=== PATIENT | female | born 1960 | race Caucasian/White ===

== ENCOUNTER 2024-05-27 19:18 | Inpatient (IN) | payer MEDICARE, OTHER, SELFPAY ==
[2024-05-27] VITALS (15 sets, daily range): BP systolic 92–195; BP diastolic 57–137; BMI 33.4; BMI 30.9
[2024-05-27 16:36] LABS: % Basophils 0.8 % (0-2); % Eosinophils 2.2 % (0-6); % Immature Granulocytes 0.4 % (0-0.5); % Lymphocytes 20.9 % (20.5-51.1); % Monocytes 6.1 % (1.7-9.3); % Neutrophils 69.6 % (42.2-75.2); Absolute Basophils 0.1 10^3/uL (0-0.2); Absolute Eosinophils 0.3 10^3/uL (0-0.7); Absolute Immature Granulocytes 0.1 10^3/uL (0-0.05); Absolute Lymphocytes 2.9 10^3/uL (1.2-3.4); Absolute Monocytes 0.9 10^3/uL (0.1-0.6); Absolute Neutrophils 9.7 10^3/uL (1.4-6.5); Hematocrit 36.7 % (37.0-47.0); Hemoglobin 12.1 g/dL (12.0-16.0); Mean Corpuscular Hgb 25.5 pg (27.0-31.0); Mean Corpuscular Volume 77.4 fL (81.0-99.0); Mean Platelet Volume 9.3 fL (7.4-10.4); Nucleated Red Blood Cells % 0 %; Platelet Count 427 10^3/uL (130-400); Red Blood Cell Count 4.74 10^6/uL (4.20-5.40); Red Cell Dist. Width 15.2 % (11.5-14.5); White Blood Cell Count 13.9 10^3/uL (4.8-10.8)
--- NOTE | 2024-05-27 16:40 | ED.GENMED ---
History of Present Illness
General
Chief Complaint: Breathing Problem
Source: patient and spouse
Exam Limitations: none
Time Seen by Provider: 05/27/24 15:44
Nursing documentation reviewed up to this point in time: agreed with
History of Present Illness
History of Present Illness:
64-year-old female no cardiac history ex-smoker presents with shortness of breath and cough dyspnea on exertion and also dyspnea at rest onset a few weeks ago seen in urgent care was tachycardic hypertensive with a small effusion referred to the ER
denies any fever has had lower extremity edema and presumed weight gain, does have a family history of cardiac disease, patient had an enlarged heart and a mitral valve issue diagnosed in [facility] greater than 17 years ago has had no local
follow-up, patient is also had some mild headache
Past History
Past History
ED Past Medical History: HTN, Hypothyroidism and Psychiatric (Depression, ADHD, anxiety)
ED Past Surgical History: Gynecological
Social History
Tobacco: Former smoker
Alcohol: None
Drug: None
Personal:
Living: with family
Employment: Not employed
Family History
Family History: CAD
Review of Systems
Review of Systems
All Other Systems: Not applicable
Constitutional: Reports weight gain; Denies fever or fatigue
EENT: Reports no symptoms
Respiratory: Reports trouble breathing
Cardiac: Denies chest pain, diaphoresis or syncope
ABD/GI: Reports no symptoms
: Reports no symptoms
Musculoskeletal: Reports edema
Neurological: Reports no symptoms
Endocrine: Reports no symptoms
Hematologic/Lymphatic: Reports no symptoms
Psychiatric: Reports no symptoms
Phy Exam
Physical Exam
Physical Exam:
Physical Exam
General: 64 female mild respiratory distress tachycardic tachypneic hypertensive
Neck: No jaundice
Heart: Tachycardic with murmur
Lungs: Crackles at the bases
Abdomen: Nontender
Neuro: alert and oriented. no focal neurological deficits
Skin: no rash
Psychiatric: well kept. interactive and cooperative
Extremities: Edema without calf pain
Scores
Heart Failure Risk
Heart Failure Risk Score: Yes
History of Stroke or TIA: No
History of intubation for respiratory distress: No
Heart rate on ED arrival >/= 110: Yes
SaO2 <90% on arrival on room air: No
HR >/=110 during 3min walk test (or too ill to perform test): Yes
ECG has acute ischemic changes: No
Urea >/=12mmol/L (BUN 33.6mg/dL): No
Serum CO2>/=35mmol/L: No
Troponin I or T elevated to IL Level (0.4mg/dL): No
NT-proBNP >/=5,000ng/L (5,000pg/ml): Yes
HF Risk Score: 3
Admission Status: HIGH RISK 15.9% Consider SNF treatment or admission to hospital
Course
Orders/Labs/Results
Orders:
Orders
05/27/24 15:24
Electrocardiogram (*1) Urgent
Reason for Study: Chest Pain
EKG- Treatment ONCE
05/27/24 15:45
Cardiac Monitoring- Treatment ONCE
05/27/24 16:26
Complete Blood Count/With Diff Urgent
NT-proBNP Urgent
Troponin I Urgent
05/27/24 16:30
HydrALAZINE [Apresoline] 10 mg IV NOW STA
05/27/24 17:25
Acetaminophen [Tylenol] 1,000 mg PO NOW STA
05/27/24 17:26
Acetaminophen [Tylenol] 1,000 mg .ROUTE .STK-MED ONE
05/27/24 17:31
Basic Metabolic Panel Urgent
05/27/24 17:59
Magnesium Urgent
Potassium Urgent
05/27/24 18:02
Furosemide [Lasix] 60 mg IV NOW STA
Abnormal Lab Results
05/27/24 05/27/24
16:26 17:31
WBC 13.9 H 10^3/uL
(4.8-10.8)
Hct 36.7 L %
(37.0-47.0)
MCV 77.4 L fL
(81.0-99.0)
MCH 25.5 L pg
(27.0-31.0)
RDW 15.2 H %
(11.5-14.5)
Plt Count 427 H 10^3/uL
(130-400)
Abs Immat Gran (auto) 0.1 H 10^3/uL
(0-0.05)
Absolute Neuts (auto) 9.7 H 10^3/uL
(1.4-6.5)
Absolute Monos (auto) 0.9 H 10^3/uL
(0.1-0.6)
Carbon Dioxide 18 L mmol/L
(22-30)
BUN 24 H mg/dl
(7-17)
Glucose 137 H mg/dl
(70-99)
05/27/24 16:26
Vital Signs
Initial and Last Documented VS:
Initial Vital Signs
Temp Pulse Resp BP Pulse Ox
98.5 F 115 22 190/131 95
05/27/24 15:20 05/27/24 15:20 05/27/24 15:20 05/27/24 15:20 05/27/24 15:20
Last Documented Vital Signs
Temp Pulse Resp BP Pulse Ox
98.5 F 113 19 178/104 99
05/27/24 15:20 05/27/24 17:30 05/27/24 17:30 05/27/24 17:15 05/27/24 17:00
MDM/Problems Addressed
Differential Diagnosis Includes:
Hypertensive urgency, pulmonary edema, congestive heart failure, valvular disease accelerated hypertension, pneumonia pulm embolism, pneumothorax
MDM/Problems Addressed:
Shortness of breath
Chronic conditions affecting care: HTN
Acute Exacerbation and/or Progression of Chronic Illness: HTN
*Radiology
Radiology exam reviewed: radiology read reviewed
*Pulse Oximetry
Patient hypoxic: no
*EKG
Interpreted by ED Provider?: Yes
Interpretation: abnormal
Comparison EKG: no comparison EKG present
Heart Rate: 118
Rate: tachycardiac
Rhythm: sinus
Ischemia: non-specific ST changes
*Admissions Evaluator Interpretation
Rate: tachycardiac
Interpretation: abnormal
Heart Rate: 118
Rhythm: sinus
*Critical Care Note
Total Time (30-74mins, 75-104mins- exclusive of procedures): 30
Update Note
Update Note:
Update, labs noted will start diuretic and alpha blockers, patient require admission
ED Attending Note
-
Portions of this chart may have been created with voice recognition software.� Occasional wrong word or��sound alike� substitutions may have occurred due to the inherent limitations of voice recognition software.
Discharge Plan
Departure
Patient Disposition: Admit
Date of Disposition: 05/27/24
Time of Disposition: 18:03
Admit to: Telemetry
Presentation/result/management discussed w/ accepting MD/DO: Hospitalist
Patient with high blood pressure during this ER visit?: Yes
Condition: Fair
Discharge Problem:
Malignant hypertensive urgency
Prescriptions:
No Action
quetiapine 200 mg tablet
200 mg PO HS
acetaminophen 500 mg Tablet
1,000 mg PO Q6H PRN (Reason: mild pain/fever/headache)
gabapentin 100 mg capsule
100 mg PO HS
hydroxyzine pamoate 25 mg capsule
50 mg PO HS
duloxetine 60 mg capsule,delayed release(DR/EC)
60 mg PO DAILY
Referrals:
NONE,* [Family Provider] -
Interventions
Interventions:
*Risk Screen - Suicide Last Done: 05/27/24 15:20
*General Assessment Last Done: 05/27/24 15:20
*Neglect/Abuse Screening Last Done: 05/27/24 15:20
*ED COVID-19 Vaccine History Last Done: 05/27/24 16:28
ED- Cardiac Assessment Last Done: 05/27/24 16:52
ED- Pulmonary Assessment Last Done: 05/27/24 16:52
Discharge Date and Time
Print Language: [place]
[2024-05-27] MEDS: APRESOLINE 10 MG IV (16:47)
[2024-05-27 17:01] LABS: NT-proBNP 5730 pg/ml; Troponin I 0.017 ng/ml
[2024-05-27] MEDS: TYLENOL 1000 MG PO (17:28)
[2024-05-27 18:00] LABS: Blood Urea Nitrogen 24 mg/dl (7-17); Calcium 9.1 mg/dl (8.4-10.2); Carbon Dioxide 18 mmol/L (22-30); Chloride 107 mmol/L (98-107); Estimated Creatinine Clearance 77 ml/min; Glucose 137 mg/dl (70-99); Sodium 138 mmol/L (135-145); eGFR > 60.00
--- NOTE | 2024-05-27 18:15 | HPS.HSE ---
Family Physician
-
Family Physician: * NONE
Chief Complaint
-
Shortness of breath for a few weeks in duration
History of Present Illness
64 years old female who presented with shortness of breath for a few weeks duration. It started as upper respiratory illness that she and her had. She continued to have dry cough with exertional shortness of breath. No chest pain. No
palpitations. She started to develop bilateral leg swelling. She did not check her weight but felt bloated.
Patient does not have primary care doctor. She does not take medications other than for anxiety and depression.
In the emergency room, she was noted to have tachycardia with high blood pressure. Chest radiography showed small right pleural effusion.
Medical History
Past Medical History
Past Medical History: Reports Other (Depression and anxiety)
Past Surgical History: Reports Other (No recent major surgery)
Social History
Tobacco: Non-smoker
Alcohol: None
Drug: None
Personal:
Living: With Family
Employment: Retired ([employer])
Family History
Family History: Hypertension
Allergies / Home Medications
Allergies reflects when Allergies were last updated in [employer].
Home Medications with original date entered in [employer]
Allergy/Medication List:
Allergies
Allergy/AdvReac Type Severity Reaction Status Date / Time
Estrogens Allergy Hives Verified 05/27/24 15:20
methyltestosterone Allergy Hives Verified 05/27/24 15:20
metoprolol Allergy Unknown Verified 05/27/24 15:20
propoxyphene Allergy Unknown Verified 05/27/24 15:20
sertraline Allergy Unknown Verified 05/27/24 15:20
sumatriptan Allergy Unknown Verified 05/27/24 15:20
Home Medications
acetaminophen 500 mg tablet 1,000 mg PO Q6H PRN mild pain/fever/headache 05/27/24
duloxetine 60 mg capsule,delayed release 60 mg PO DAILY 05/27/24
gabapentin 100 mg capsule 100 mg PO HS 05/27/24
hydroxyzine pamoate 25 mg capsule 50 mg PO HS 05/27/24
quetiapine 200 mg tablet 200 mg PO HS 05/27/24
Review of Systems
-
History Source: Patient
A 12 point ROS was completed and negative except as noted: Yes
Constitutional: Denies Fever or Chills
EENT: Denies Sore Throat
Respiratory: Reports Trouble Breathing
Cardiac: Denies Chest Pain
Abdomen/GI: Denies Abdominal Pain
: Reports Frequency
Musculoskeletal: Reports Edema (Lower extremity)
Skin: Denies Rash
Neurological: Reports Headache
Endocrine: Denies Temp Intolerance
Hematologic/Lymphatic: Denies Bruising
Psych: Denies Panic Disorder
Physical Exam
Vital Signs
Vital Signs
Temp Pulse Resp BP Pulse Ox
98.5 F 113 19 178/104 99
05/27/24 15:20 05/27/24 17:30 05/27/24 17:30 05/27/24 17:15 05/27/24 17:00
Physical Exam
General: No Apparent Distress and Comfortable
HEENT: Moist mucous membranes and Atraumatic
Respiratory: No Wheezes or Rales
Cardiac: S1/S2 and Tachycardia
GI: Soft and Non Tender
Genito-urinary: No costovertebral tender
Musculoskeletal: No Clubbing, No Cyanosis, Edema, Left Lower Extremity and Edema, Right Lower Extremity
Skin: No Jaundice
Neuro: AO x 3 and Nonfocal/grossly intact; No Slurred Speech or Facial Droop
Psych: Calm and Intact Judgment/Insight
Laboratory Results
-
05/27/24 16:26
Laboratory Results
Total Bilirubin Cancelled 05/27/24 17:31
AST Cancelled 05/27/24 17:31
ALT Cancelled 05/27/24 17:31
Alkaline Phosphatase Cancelled 05/27/24 17:31
Troponin I 0.017 ng/ml 05/27/24 16:26
Impression/Plan
-
64 years old female presented with trouble breathing for a few weeks and peripheral edema
#Hypertensive urgency with possible underlying heart disease/new diagnosis of heart failure
No history of primary hypertension. No follow-up with primary care doctor for years.
She denied hypoxia or chest pain. Negative troponin. Elevated proBNP. EKG no acute ischemic changes but conduction defect.
No elevated JVD.
Reported weight gain/peripheral edema last few weeks.
Chest radiography small right pleural effusion
Admit the patient to the hospital/telemetry floor
She is getting hydralazine, Lasix in the emergency room,
Will hold off on blood pressure medications intravenously for now until we see the response of blood pressure after administering the IV medications in the ER
For now we will start the patient on low-dose carvedilol
Continue with as needed IV hydralazine
Continue with IV Lasix twice daily
Monitor renal function and electrolytes cardiac monitoring
Order echocardiogram
Appreciate cardiology input
#Blood work including potassium and renal function
# Leukocytosis. No fever. No significant cough. Chest radiography no infiltration.
Likely reactive. Will monitor
# Sinus tachycardia
Will start the patient on low-dose carvedilol. Monitor on telemetry. Follow-up with echo.
# History of anxiety and depression. Mood is cooperative. Continue with home medications.
# DVT prophylaxis
Total time spent to see the patient on the floor, examine the patient, review data and lab results, discuss treatment plan with patient and her , ER doctor, nursing staff around 75 minutes
[2024-05-27] MEDS: LASIX 60 MG IV (18:46)
[2024-05-27] MEDS: VASOTEC 5 MG PO (18:46)
[2024-05-27] MEDS: COREG 6.25 MG PO (21:00)
[2024-05-27 21:01] LABS: Potassium 3.3 mmol/L (3.5-5.1)
[2024-05-27] MEDS: NEURONTIN 100 MG PO (21:08)
[2024-05-27] MEDS: SEROQUEL 200 MG PO (21:08)
[2024-05-27] MEDS: HEPARIN 5000 UNITS SC (21:10)
[2024-05-27] MEDS: KCL 40 MEQ PO (22:24)
--- NOTE | 2024-05-27 22:39 | PTCARENOTE ---
Rec'd pt from ED, oriented to room and unit. Pt's bue and ble 'cramping' TT to Nash FENG order for potassium provided, given to pt. Pt blood pressure down from 174/102 to 92/63, pt somewhat dizzy and lightheaded. No new orders. Pt instructed to
stay flat if can tolerate and not get up without ringing. Pt call robles placed within reach, pt instructed to ring for assistance, verbalized understanding. will cont to monitor. Pt asked for home vistaril to be orderd, Nash FENG no new orders as
pt has a prolonged QT
[2024-05-28] VITALS (9 sets, daily range): BP systolic 80–165; BP diastolic 41–96; PULSE 84–88; BMI 30.7
[2024-05-28] MEDS: TYLENOL 1000 MG PO ×3 (07:31→21:36)
[2024-05-28 08:01] LABS: Blood Urea Nitrogen 23 mg/dl (7-17); Calcium 8.9 mg/dl (8.4-10.2); Carbon Dioxide 23 mmol/L (22-30); Chloride 103 mmol/L (98-107); Estimated Creatinine Clearance 59 ml/min; Glucose 115 mg/dl (70-99); HDL Cholesterol 40 mg/dl; LDL Cholesterol, Calculated 55 mg/dl; Potassium 3.8 mmol/L (3.5-5.1); Sodium 137 mmol/L (135-145); Total Cholesterol 117 mg/dl (50-199); Triglyceride 114 mg/dl (10-149); Very Low Density Lipoprotein 22 mg/dl (0-30); eGFR > 60.00
[2024-05-28] MEDS: KCL 20 MEQ PO ×2 (08:34→21:19)
[2024-05-28] MEDS: COREG 6.25 MG PO ×2 (08:34→21:21)
[2024-05-28] MEDS: CYMBALTA DELAYED RELEASE 60 MG PO (08:34)
[2024-05-28] MEDS: HEPARIN 5000 UNITS SC ×2 (08:35→21:19)
[2024-05-28] MEDS: LASIX 40 MG IV (08:35)
--- NOTE | 2024-05-28 09:14 | CON.CAR ---
Addendum entered and electronically signed by Armando Elias MD 05/28/24 16:54:
I saw and examined the patient.
The CORRECTIONAL SUPERVISING COOK's note was reviewed and I agree with the note.
Comment: 64 y/o female with hypertension (no longer on meds), hypothyroidism (no longer on meds), depression, and anxiety who is here for evaluation of SOB x 5 weeks with associated cough, LE edema, and abdominal bloating. She has depressed EF and
will plan for cath tomorrow.
Original Note:
Consultation
Consultation Request
Date/Time Consultation Requested: 05/27/242023
Date/Time Consultation Performed: 05/28/24929
Requesting Provider: Dr. Guzman
Performing Provider: Lesley FENG for Dr. Waters
Reason for Consultation: CHF
Medical History
-
Chief Complaint: SOB
History of Present Illness:
64 y/o female with hypertension (no longer on meds), hypothyroidism (no longer on meds), depression, and anxiety who is here for evaluation of SOB x 5 weeks with associated cough, LE edema, and abdominal bloating. She does not know her normal
weight, but does believe her weight is up. She does think this all started with a URI about 5 weeks ago that she and her both had. She had a fire watchman back in [place] about 18 years ago for 'enlarged heart' and 'tachycardia'; details unknown.
BP was severely elevated on arrival, but is now improved and on medical therapy. Additionally, she has been given IV diuresis and feels much improved. She is in no distress at the time of my assessment.
Past Medical History
Past Medical History: HTN, Hypothyroidism and Psychiatric (depression, anxiety)
Social History
Tobacco: Former Smoker
Alcohol: None
Personal:
Living: With Family
Family History
Family History: Other (dad : afib)
Allergies / Home Medications
Allergy/AdvReac Type Severity Reaction Status Date / Time
Estrogens Allergy Hives Verified 05/27/24 15:20
methyltestosterone Allergy Hives Verified 05/27/24 15:20
metoprolol Allergy Unknown Verified 05/27/24 15:20
propoxyphene Allergy Unknown Verified 05/27/24 15:20
sertraline Allergy Unknown Verified 05/27/24 15:20
sumatriptan Allergy Unknown Verified 05/27/24 15:20
�Medication �Instructions �Recorded �Confirmed �Type
acetaminophen 500 mg tablet 1,000 mg PO Q6H PRN mild 05/27/24 05/27/24 History
pain/fever/headache
duloxetine 60 mg capsule,delayed 60 mg PO DAILY Neurological 05/27/24 05/27/24 History
release Condition
gabapentin 100 mg capsule 100 mg PO HS Neurological Condition 05/27/24 05/27/24 History
hydroxyzine pamoate 25 mg capsule 50 mg PO HS Sleep 05/27/24 05/27/24 History
quetiapine 200 mg tablet 200 mg PO HS Mental Health/Anxiety 05/27/24 05/27/24 History
Review of Systems
-
History Source: Patient
All other systems: Negative unless noted
Constitutional: Weight Gain
Respiratory: Cough and Trouble Breathing
Musculoskeletal: Edema
Physical Exam
Vital Signs
Temp Pulse Resp BP Pulse Ox
98.1 F 98 16 129/81 94
05/28/24 07:00 05/28/24 08:34 05/28/24 07:00 05/28/24 08:34 05/28/24 07:00
Lab Results
05/27/24 16:26
05/28/24 06:53
Troponin I 0.017 ng/ml 05/27/24 16:26
Eej-T-Djojnzllflw Pept 5730 pg/ml 05/27/24 16:26
Physical Exam
General: Well Developed, Well Nourished and No Apparent Distress
HEENT: Normocephalic and Anicteric
Respiratory: Other (diminished L base)
Cardiac: Regular Rhythm
Musculoskeletal: Edema (mild BLE edema)
Skin: Warm and Dry
Neuro: AO x 3
Psych: Calm
Impression / Plan
-
HTN: severe on arrival
-improved s/p enalapril, lasix, hydralazine, coreg
-tolerating coreg, which was started by internal medicine team
-monitor with diuresis and Coreg
Acute HF, type unknown:
-echo from this AM pending
-continue IV diuresis, which requires intensive monitoring
-will change to BID
-hypokalemia resolved and potassium supplementation has been ordered
-CHF education
-sodium/fluid restriction
Depression, anxiety:
-on medical therapy
Hypothyroidism:
-not on meds
-check levels
Other info:
Patient will need to establish care with PCP at d/c, she has not seen one in years
Data Reviewed
-
EKG: Tracing Personally Visualized and interpreted (ST with ICRBBB)
Radiology: Report Reviewed by me (CXR: Small right pleural effusion.)
Medical Tests (Nuc Med, Echo etc): Other (echo ordered and pending)
Labs: Labs Reviewed by me
--- NOTE | 2024-05-28 09:45 | W.PN.HOSP.TC ---
Addendum entered and electronically signed by Jerel Guzman MD 05/28/24 15:31:
Addendum
Echo showed depressed LVEF, will need to rule out obstructive CAD
Plan for Cath tomorrow
_SBP low at 91, hold PM dose of Lasix, hope she can tolerate Coreg.
End
Original Note:
Today's Communication/Plan
-
likely dc in am pending echo result and cardiology input
Assessment / Plan
Assessment / Plan
Physical Exam
General: No Apparent Distress and Comfortable
HEENT: Moist mucous membranes and Atraumatic
Respiratory: No Wheezes or Rales
Cardiac: S1/S2 and no murmur.
GI: Soft and Non Tender
Genito-urinary: No costovertebral tender
Musculoskeletal: No Clubbing, No Cyanosis, Edema, less Left Lower Extremity and Edema, less Right Lower Extremity
Skin: No Jaundice
Neuro: AO x 3 and Nonfocal/grossly intact; No Slurred Speech or Facial Droop
Psych: Calm and Intact Judgment/Insight.
64 years old female presented with trouble breathing for a few weeks and peripheral edema
#Hypertensive urgency with possible underlying heart disease/new diagnosis of heart failure
BP is better controlled. Good response over night
She had good urine out put over night. Weight is 83 KG. I think weight of 91 Kg in ER not very accurate
C/W Lasix but reduce to once daily.
F/W echo result
No hypoxia
No chest pain
LDL 55
Appreciate cardiology input
#Hypokalemia, replace
# Leukocytosis. No fever. No significant cough. Chest radiography no infiltration.
Likely reactive.
# Sinus tachycardia. Less today
c/w BB.
# History of anxiety and depression. She follows with psychiatrist. Mood is cooperative. Continue with home medications.
# DVT prophylaxis, SQ Heparin
Total time spent to see the patient on the floor, examine the patient, review data and lab results, discuss treatment plan with patient, nursing staff around 55 minutes
Anticipated Discharge: Within 24 hours
Subjective/Interval History
-
Date of Service: May 28, 2024
She is feeling better
Objective Data
-
Labs:
Laboratory Results
05/28/24
06:53
Sodium 137
Potassium 3.8
Chloride 103
Carbon Dioxide 23
BUN 23 H
Creatinine 1.0
Glucose 115 H
Calcium 8.9
Vital Signs:
Vital Signs
Temp Pulse Resp BP Pulse Ox
98.1 F 98 16 129/81 94
05/28/24 07:00 05/28/24 08:34 05/28/24 07:00 05/28/24 08:34 05/28/24 07:00
I&O
05/27/24 05/28/24 05/29/24
06:59 06:59 06:59
Output Total 1750 / 1750
Balance -1750 / -1750
--- NOTE | 2024-05-28 10:23 | W.DCSUMMARY ---
Discharge Summary
Discharge Data
Date of Admission: 05/27/24
Date of Discharge: 05/30/24
-
Pending Results: No
Hospital Course
64 years old female admitted with shortness of breath. Patient was found to have elevated blood pressure and was diagnosed with hypertensive emergency. She had evidence of heart failure with pulmonary congestion and respiratory distress. Patient
did not have primary care doctor and was not checking her blood work or blood pressure at home. Patient was diagnosed with primary untreated hypertension. She was admitted to the hospital and started on new medications including carvedilol. She
was given furosemide treatment. Patient was evaluated by product safety and standards engineer. She had echocardiogram that showed left ventricular ejection fraction around 40%. She underwent cardiac catheterization and she had very mild nonobstructive coronary artery
disease. She had elevated filling pressure. She was started on goal-directed medical therapy with lisinopril, Farxiga, carvedilol. Blood work including renal function was monitored in the hospital. Patient seems to tolerate medications well with
no hypotension or dizziness. She did not have chest pain. Patient was found to have elevated hemoglobin A1c at 7.7. Possible diabetic status. Patient was counseled regarding potential side effects of her new medications including lisinopril and
Farxiga. She verbalized understanding. She was given prescription to do blood work and appointment to follow-up with product safety and standards engineer. Patient was advised to establish primary care services. Discharge instructions were discussed with the patient and
her and all questions were answered to their satisfaction. Patient remained hemodynamically stable and was discharged home in a stable condition.
Discharge Plan
-
Patient Disposition: Home (Routine Discharge)
Discharge Diagnosis/Procedures: Hypertensive urgency with hypertensive heart disease/new diagnosis of acute systolic heart failure
Status post echocardiogram and cardiac catheterization
Possible pre-diabetes status
You were followed by product safety and standards engineer.
You were started on new medications as follows with common side effects.
- Lasix, diuretic, potential Side effects : hypotension, hypokalemia, hyponatremia, kidney injury.
- Dapagliflozin (Farxiga) : Urine/ genital infection, nausea, low blood glucose
- Lisinopril IMELDA: hypotension, hyperkalemia, kidney injury, angioedema, cough
- Atorvastatin, statin for cholesterol,: muscle pain/aches, myopathy, elevated liver enzymes, fatigue
- Carvedilol ( Coreg) Beta solo' hypotension, bradycardia, fatigue.
You will need to do blood work to monitor for side effects. You will need to establish primary care services.
Check your blood pressure twice a day and keep record of the readings to share with your doctors. Optimal blood pressure less than 140/90
Diet: Low Fat and Low Sodium
Blood Work: CMP&CBC&LFT&CPK in 1 week
Instructions: *PCP/Other Trumpet Teacher Heart Failure Instructions
Stand Alone Forms: DC Instructions- Cath/EP Lab
Referrals:
Armando Elias MD [Active] - 06/12/24 3:40 pm (Cardiology followup appointment)
Nataly Stephenson CRNP [Non-Admitting Privileges] - in one to two weeks
Prescriptions:
New
carvedilol 6.25 mg Tablet
6.25 mg PO BID Qty: 60 0RF
dapagliflozin propanediol 10 mg Tablet
10 mg PO DAILY Qty: 30 0RF
furosemide 40 mg Tablet
40 mg PO DAILY Qty: 30 0RF
atorvastatin 20 mg Tablet
20 mg PO QPM Qty: 30 0RF
aspirin 81 mg Tablet,Chewable
81 mg PO DAILY Qty: 30 0RF
lisinopril 10 mg tablet
10 mg PO DAILY Qty: 30 0RF
Continued
quetiapine 200 mg tablet
200 mg PO HS
acetaminophen 500 mg Tablet
1,000 mg PO Q6H PRN (Reason: mild pain/fever/headache)
gabapentin 100 mg capsule
100 mg PO HS
hydroxyzine pamoate 25 mg capsule
50 mg PO HS
duloxetine 60 mg capsule,delayed release(DR/EC)
60 mg PO DAILY
Discharge Orders:
Discharge Patient (As Directed); Ordered 05/30/24
Ordered By: Jerel Guzman
Discharge Date and Time
Discharge Date/Time: 05/30/24 12:07
Print Language: CHINESE
[2024-05-28 11:53] LABS: TSH Reflex To Free T4 5.37 uIU/ml (0.47-4.68)
[2024-05-28] MEDS: ASPIRIN 325 MG PO (12:22)
[2024-05-28 12:23] LABS: Free T4 1.26 ng/dl (0.78-2.19)
--- NOTE | 2024-05-28 13:54 | CM ---
Patient seen at bedside with patient . Patient lives in a 2 story home with no DME. Patient does not have a PCP and uses the [facility] in [facility]. Patient is independent of ADL's and IADL's. Patient has an advance directivve per her
. CM called to [employer] [facility] and they will not provide cost without a script; per Moe Delo cost for entresto is 462.28 bid and Fariga 10 mg daily is 446.13, Jardiance is not covered. CM updated PA for cardiology and left VM for insurance,
will call again to attempt to get further cost information. Patient states that patient has not met her deductible yet and he understands that they are responsible for 50% of med cost. Patient is for surgical procedure next wed and
is expecting to be in the hospital for only one day. CM encouraged patient and to think of further options for supports. CM will continue to follow for discharge planning needs.
Plan; home with VN vs home with no needs.
[2024-05-28] MEDS: NEURONTIN 100 MG PO (21:37)
[2024-05-28] MEDS: SEROQUEL 200 MG PO (21:37)
[2024-05-29] VITALS (13 sets, daily range): BP systolic 98–141; BP diastolic 57–98; PULSE 87; BMI 30.5
[2024-05-29] MEDS: LASIX 40 MG IV (08:43)
[2024-05-29] MEDS: KCL 20 MEQ PO (08:44)
[2024-05-29] MEDS: FARXIGA 10 MG PO (08:44)
[2024-05-29] MEDS: LOW STRENGTH ASPIRIN 81 MG PO (08:44)
[2024-05-29] MEDS: CYMBALTA DELAYED RELEASE 60 MG PO (08:44)
[2024-05-29] MEDS: COREG 6.25 MG PO ×2 (08:44→20:49)
[2024-05-29] MEDS: HEPARIN 5000 UNITS SC ×2 (08:45→20:40)
[2024-05-29 09:05] LABS: Blood Urea Nitrogen 29 mg/dl (7-17); Calcium 8.9 mg/dl (8.4-10.2); Carbon Dioxide 25 mmol/L (22-30); Chloride 105 mmol/L (98-107); Estimated Creatinine Clearance 54 ml/min; Glucose 111 mg/dl (70-99); Potassium 4.5 mmol/L (3.5-5.1); Sodium 138 mmol/L (135-145); eGFR 55.42
--- NOTE | 2024-05-29 09:13 | CM ---
Addendum entered by Meena Dsouza 05/29/24 14:24:
Patient provided card for med D program [facility] /[facility] member # [id number] and phone number . Per insurance Cost for Entresto would be [phone]$,Cost for Faxiga 10 mg would be $623.94,Jardiance is not covered.
Addendum entered by Meena Dsouza 05/29/24 12:51:
Patient out of room to procedure per nursing. Patient stated he does not have patient cards and CM should get them from her. CM will return and attempt to clarify when patient returns from procedure.
Original Note:
CM called to insurance plan listed however, no accurate plan D information available. CM left message for patient regarding phone numbers. CM will continue to follow for discharge planning needs.
Plan; home with VN vs home with no needs.
--- NOTE | 2024-05-29 09:23 | W.PN.HOSP.TC ---
Today's Communication/Plan
-
Treatment of new onset heart failure with Lasix
Mild BRIGITTE, avoid hypotension
NPO, plan for Cath today
Assessment / Plan
Assessment / Plan
Physical Exam
General: No Apparent Distress and Comfortable
HEENT: Moist mucous membranes and Atraumatic
Respiratory: No Wheezes or Rales
Cardiac: S1/S2 and no murmur.
GI: Soft and Non Tender
Genito-urinary: No costovertebral tender
Musculoskeletal: No Clubbing, No Cyanosis, Edema, less Left Lower Extremity and Edema, less Right Lower Extremity
Skin: No Jaundice
Neuro: AO x 3 and Nonfocal/grossly intact; No Slurred Speech or Facial Droop
Psych: Calm and Intact Judgment/Insight.
64 years old female presented with trouble breathing for a few weeks and peripheral edema
#Hypertensive urgency with possible underlying heart disease/new diagnosis of heart failure
# Newly diagnosed acute systolic heart failure
No chest pain
Plan for cath, she is NPO
BP is better controlled. Good response over night
She had good urine out put over night. Weight is 83 KG. I think weight of 91 Kg in ER not very accurate
C/W Lasix as blood pressure tolerates
Echocardiogram showed LVEF 40%, LAD territory hypokinesis, stage II diastolic dysfunction, mild MR, moderate TR, estimated PAP 35 to 40 mmHg.
No hypoxia
No chest pain
LDL 55
Started on Farxiga
Appreciate cardiology input
#Hypokalemia, replaced
# Mild BRIGITTE
Avoid hypotension
# Leukocytosis. No fever. No significant cough. Chest radiography no infiltration.
Likely reactive.
# Sinus tachycardia. Less today
c/w BB.
# History of anxiety and depression. She follows with psychiatrist. Mood is cooperative. Continue with home medications.
# DVT prophylaxis, SQ Heparin
Total time spent to see the patient on the floor, examine the patient, review data and lab results, discuss treatment plan with patient, nursing staff around 55 minutes
Anticipated Discharge: 24 - 48 hours
Subjective/Interval History
-
Date of Service: May 29, 2024
No sob
No chest pain
Objective Data
-
Labs:
Laboratory Results
05/29/24
07:25
Sodium 138
Potassium 4.5
Chloride 105
Carbon Dioxide 25
BUN 29 H
Creatinine 1.1 H
Glucose 111 H
Calcium 8.9
Vital Signs:
Vital Signs
Temp Pulse Resp BP Pulse Ox
98.2 F 88 16 134/82 95
05/29/24 08:13 05/29/24 08:44 05/29/24 08:13 05/29/24 08:44 05/29/24 08:13
I&O
05/28/24 05/29/24 05/30/24
06:59 06:59 06:59
Intake Total 1200 / 1200
Output Total 1750 / 1750 1000 / 1000
Balance -1750 / -1750 200 / 200
[2024-05-29 10:54] LABS: Glycohemoglobin (HgbA1c) 7.7 % (4.0-5.6)
[2024-05-29] MEDS: NSS 250 ML IV (11:21)
--- NOTE | 2024-05-29 13:51 | ITS.CL.CATH ---
Scalder - Catheterization
Cardiac Catheterization
Procedure Report:
CARDIAC CATHETERIZATION REPORT
Date of Procedure: 05/29/2024
Referring: Armando Elias MD
Indication: New CHF with systolic dysfunction
HEMODYNAMIC DATA
AO: 156/99
LV: 156/21
LEFT VENTRICULOGRAPHY: Mild global hypokinesis with EF 41%
CORONARY ANGIOGRAPHY
Dominance: Right
Left Main: Normal
LAD: Mild luminal irregularities
Circumflex: Mild luminal irregularities
RCA: Dominant vessel with 10-20% mid RCA stenosis and otherwise mild luminal irregularities
Closure Device: None-the procedure was performed via the right radial artery. The Ariel's test was normal prior to the procedure.
Radiation (mGy): 136
DAP (cm2.Gy): 14.2
Fluoroscopy time: 1.9 minutes
CONCLUSIONS
1: Systemic hypertension
2: Mildly elevated LVEDP
3. Mild global hypokinesis with EF 41%
4. Very mild nonobstructive CAD as described
5. Suspect hypertensive cardiomyopathy as etiology for her left ventricular dysfunction and clinical heart failure. Continue carvedilol 6.25 twice daily and add lisinopril 5 mg twice daily which can be titrated up depending on blood pressure
response. Given mild nonobstructive CAD, she should remain on low-dose aspirin and statin to achieve LDL less than 70 and ideally 55. She will need education about home blood pressure monitoring and clinical follow-up with both medicine and
cardiology
Copy to: Armando Elias MD
Ellis Banegas MD, [facility], [facility]
[2024-05-29] MEDS: LIPITOR 20 MG PO (17:29)
[2024-05-29] MEDS: ZESTRIL 5 MG PO (20:50)
[2024-05-29] MEDS: TYLENOL 650 MG PO (20:57)
[2024-05-29] MEDS: SEROQUEL 200 MG PO (21:07)
[2024-05-29] MEDS: NEURONTIN 100 MG PO (21:07)
[2024-05-30 03:00] VITALS: BP 127/82
[2024-05-30 06:00] VITALS: BMI 30.2
[2024-05-30 07:00] VITALS: BP 120/86
[2024-05-30] MEDS: LASIX 40 MG PO (08:32)
[2024-05-30] MEDS: KCL 20 MEQ PO (08:32)
[2024-05-30] MEDS: LOW STRENGTH ASPIRIN 81 MG PO (08:33)
[2024-05-30] MEDS: HEPARIN 5000 UNITS SC (08:33)
[2024-05-30] MEDS: ZESTRIL 5 MG PO (08:33)
[2024-05-30] MEDS: COREG 6.25 MG PO (08:33)
[2024-05-30] MEDS: FARXIGA 10 MG PO (08:33)
[2024-05-30] MEDS: CYMBALTA DELAYED RELEASE 60 MG PO (08:33)
[2024-05-30 08:42] LABS: Hematocrit 35.7 % (37.0-47.0); Hemoglobin 11.5 g/dL (12.0-16.0); Mean Corp Hgb Conc. 32.2 g/dL (33.0-37.0); Mean Corpuscular Hgb 25.1 pg (27.0-31.0); Mean Corpuscular Volume 77.9 fL (81.0-99.0); Mean Platelet Volume 8.9 fL (7.4-10.4); Platelet Count 352 10^3/uL (130-400); Red Blood Cell Count 4.58 10^6/uL (4.20-5.40); Red Cell Dist. Width 14.7 % (11.5-14.5); White Blood Cell Count 9.4 10^3/uL (4.8-10.8)
[2024-05-30 09:00] LABS: Blood Urea Nitrogen 27 mg/dl (7-17); Carbon Dioxide 22 mmol/L (22-30); Chloride 103 mmol/L (98-107); Estimated Creatinine Clearance 65 ml/min; Glucose 110 mg/dl (70-99); Sodium 136 mmol/L (135-145); eGFR > 60.00
--- NOTE | 2024-05-30 09:25 | W.PN.HOSP.TC ---
Today's Communication/Plan
-
dc planning
Assessment / Plan
Assessment / Plan
Physical Exam
General: No Apparent Distress and Comfortable
HEENT: Moist mucous membranes and Atraumatic
Respiratory: No Wheezes or Rales
Cardiac: S1/S2 and no murmur.
GI: Soft and Non Tender
Genito-urinary: No costovertebral tender
Musculoskeletal: No Clubbing, No Cyanosis, Edema, less Left Lower Extremity and Edema, less Right Lower Extremity
Skin: No Jaundice
Neuro: AO x 3 and Nonfocal/grossly intact; No Slurred Speech or Facial Droop
Psych: Calm and Intact Judgment/Insight.
64 years old female presented with trouble breathing for a few weeks and peripheral edema
#Hypertensive urgency with possible underlying heart disease/new diagnosis of heart failure
# Newly diagnosed acute systolic heart failure
No chest pain
cath on 05/29 showed mild nonobstructive CAD
She had good urine out put over night. Weight is 83 KG. I think weight of 91 Kg in ER not very accurate
C/W Lasix as blood pressure tolerates
Echocardiogram showed LVEF 40%, LAD territory hypokinesis, stage II diastolic dysfunction, mild MR, moderate TR, estimated PAP 35 to 40 mmHg.
No hypoxia
No chest pain
LDL 55.
Started on Farxiga
Appreciate cardiology input
#Hypokalemia, replaced
# Mild BRIGITTE
Avoid hypotension
# Leukocytosis. No fever. No significant cough. Chest radiography no infiltration.
Likely reactive.
# Sinus tachycardia. Less today
c/w BB.
# History of anxiety and depression. She follows with psychiatrist. Mood is cooperative. Continue with home medications.
# DVT prophylaxis, SQ Heparin
Total discharge time spent to see the patient on the floor, examine the patient, review data and lab results, discuss discharge plan with patient, nursing staff around 65 minutes
Anticipated Discharge: Today
Subjective/Interval History
-
Date of Service: May 30, 2024
No chest pain
No fevers
Objective Data
-
Labs:
Laboratory Results
05/30/24
07:53
WBC 9.4
Hgb 11.5 L
Hct 35.7 L
Plt Count 352
Sodium 136
Potassium 4.0
Chloride 103
Carbon Dioxide 22
BUN 27 H
Creatinine 0.9
Glucose 110 H
Calcium 9.0
Vital Signs:
Vital Signs
Temp Pulse Resp BP Pulse Ox
98.3 F 87 16 120/86 95
05/30/24 07:00 05/30/24 07:00 05/30/24 07:00 05/30/24 07:00 05/30/24 07:00
I&O
05/29/24 05/30/24 05/31/24
06:59 06:59 06:59
Intake Total 1200 / 1200 240 / 240
Output Total 1000 / 1000
Balance 200 / 200 240 / 240
--- NOTE | 2024-05-30 10:00 | CM ---
Patient is for discharge to home today, no needs.
Plan; Home no needs, unable to set up vn patient does not have a PCP.
--- NOTE | 2024-05-30 10:47 | W.PN.CD ---
Today's Communication / Plan
-
-GDMT: Lisinopril 10mg, consider Entresto as outpt, Farxiga 10, Coreg 6.25 mg bid, MRA as outpt
- lasix 40 PRN for weight gain
OK for d/c has follow up
Impression / Plan
-
HTN: severe on arrival
-improved s/p cont lisinopril, coreg
Acute HFrEF improved
-GDMT: Lisinopril 10mg, consider Entresto as outpt, Farxiga 10, Coreg 6.25 mg bid, MRA as outpt
- lasix 40 PRN for weight gain
-
Depression, anxiety:
-on medical therapy
Hypothyroidism:
-not on meds
-check levels
Subjective: feels well no new complaints
Other info:
Patient will need to establish care with PCP at d/c, she has not seen one in years
Physical Exam
Vital Signs/Labs
Vital Signs
Temp Pulse Resp BP Pulse Ox
98.3 F 87 16 120/86 98
05/30/24 07:00 05/30/24 07:00 05/30/24 07:00 05/30/24 07:00 05/30/24 09:29
05/29/24 05/30/24 05/31/24
06:59 06:59 06:59
Actual Weight 183 lb 7 oz 181 lb 4 oz
05/30/24 07:53
05/30/24 07:53
Magnesium 2.0 mg/dl (1.6-2.3) 05/27/24 20:42
Triglycerides 114 mg/dl (10-149) 05/28/24 06:53
LDL Cholesterol, Calc 55 mg/dl 05/28/24 06:53
VLDL Cholesterol, Calc 22 mg/dl (0-30) 05/28/24 06:53
HDL Cholesterol 40 mg/dl 05/28/24 06:53
Free T4 1.26 ng/dl (0.78-2.19) 05/28/24 06:53
05/27/24
16:26
[id number] Pept 5730
LAB Results
05/27/24
16:26
Troponin I 0.017
Physical Exam
Constitutional: No acute distress
Cardiovascular: Rhythm & rate is regular and Pedal edema is absent
Respiratory: Respiratory effort normal and Lungs clear to auscul.
GI: Soft
Neuro/Psych: AO x 3
Data Reviewed
-
Date of Service: May 30, 2024
EKG: Report Reviewed by me
Echo: Report Reviewed by me
Labs: Labs Reviewed by me
== END 2024-05-30 12:07 | disposition home or self-care (01) | DRG 286 ==
LOC: 4 WEST ACU 19:18
PROVIDERS: Internal Medicine Cardiovascular Disease; Nurse Practitioner; ADMITTING PHYSICIAN Internal Medicine; EMERGENCY PHYSICIAN Emergency Medicine; OTHER PHYSICIAN Internal Medicine Cardiovascular Disease
PROC: B2111ZZ Fluoroscopy of Multiple Coronary Arteries using Low Osmolar Contrast (ICD-10-PCS; 2024-05-29)
PROC: B2151ZZ Fluoroscopy of Left Heart using Low Osmolar Contrast (ICD-10-PCS; 2024-05-29)
PROC: 4A023N7 Measurement of Cardiac Sampling and Pressure, Left Heart, Percutaneous Approach (ICD-10-PCS; 2024-05-29)
DX: I11.0 Hypertensive heart disease with heart failure (principal); I50.21 Acute systolic (congestive) heart failure; N17.9 Acute kidney failure, unspecified; I16.0 Hypertensive urgency; R73.03 Prediabetes; F41.9 Anxiety disorder, unspecified; F32.A Depression, unspecified; D72.829 Elevated white blood cell count, unspecified; R00.0 Tachycardia, unspecified; E03.9 Hypothyroidism, unspecified; E87.6 Hypokalemia; I25.10 Atherosclerotic heart disease of native coronary artery without angina pectoris; I43 Cardiomyopathy in diseases classified elsewhere; Z87.891 Personal history of nicotine dependence
CPT/HCPCS: 80048; 80061; 83036; 83735; 83880; 84132; 84439; 84443; 84484; 85025; 85027; 93005; 93306; 96374; 96375; 97162; 97166; 99291

== ENCOUNTER 2024-08-31 12:14 | Emergency (ER) | payer MEDICARE, OTHER, SELFPAY ==
[2024-08-31 12:17] VITALS: BP 104/70
[2024-08-31 12:47] LABS: Hematocrit 35.7 % (37.0-47.0); Hemoglobin 11.9 g/dL (12.0-16.0); Mean Corp Hgb Conc. 33.3 g/dL (33.0-37.0); Mean Corpuscular Volume 77.9 fL (81.0-99.0); Mean Platelet Volume 9.4 fL (7.4-10.4); Platelet Count 370 10^3/uL (130-400); Red Blood Cell Count 4.58 10^6/uL (4.20-5.40); White Blood Cell Count 16.3 10^3/uL (4.8-10.8)
[2024-08-31 12:56] LABS: ALT (SGPT) 159 U/L (0-35); AST (SGOT) 95 U/L (14-36); Albumin 4.6 g/dl (3.5-5.0); Alkaline Phosphatase 465 U/L (38-126); Blood Urea Nitrogen 31 mg/dl (7-17); Calcium 9.8 mg/dl (8.4-10.2); Carbon Dioxide 27 mmol/L (22-30); Chloride 99 mmol/L (98-107); Glucose 117 mg/dl (70-99); Potassium 4.2 mmol/L (3.5-5.1); Sodium 138 mmol/L (135-145); Total Bilirubin 0.5 mg/dl (0.2-1.3); Total Protein 7.7 g/dl (6.3-8.2); eGFR 55.42
[2024-08-31 13:36] LABS: % Basophils 0.8 % (0-2); % Eosinophils 14.3 % (0-6); % Immature Granulocytes 0.4 % (0-0.5); % Lymphocytes 19.7 % (20.5-51.1); % Monocytes 7.6 % (1.7-9.3); % Neutrophils 57.2 % (42.2-75.2); Absolute Basophils 0.1 10^3/uL (0-0.2); Absolute Eosinophils 2.3 10^3/uL (0-0.7); Absolute Immature Granulocytes 0.1 10^3/uL (0-0.05); Absolute Lymphocytes 3.2 10^3/uL (1.2-3.4); Absolute Monocytes 1.2 10^3/uL (0.1-0.6); Absolute Neutrophils 9.4 10^3/uL (1.4-6.5); Normal RBC Morphology Yes; Nucleated Red Blood Cells % 0 %
--- NOTE | 2024-08-31 16:03 | ED.GENMED ---
History of Present Illness
General
Chief Complaint: Blood Pressure Problem
Source: patient, records and spouse
Exam Limitations: none
Time Seen by Provider: 08/31/24 15:51
Nursing documentation reviewed up to this point in time: agreed with
History of Present Illness
History of Present Illness:
Patient is a 64-year-old female presents to the emergency department complaining of dizzy spells with lightheadedness intermittently since starting Entresto. Patient's blood pressure was found to be low. Patient feels as though she is going to
pass out. Patient denies any chest pain. Patient does have exertional dyspnea but no worse than normal. Patient denies any GI or symptoms. Patient denies fever or chills, nasal congestion, sore throat or cough. Patient had a nuclear stress
test which showed good perfusion but a diminished EF. Patient was then started on Entresto. Patient has absolutely no abdominal pain no history of elevated LFTs. Patient denies any travel history. No one else at home is ill. Patient denies any
transfusions.
Past History
Past History
ED Past Medical History: CAD (Very mild nonobstructive by cardiac catheterization on May 29, 2024), HTN, Hypothyroidism and Psychiatric (Depression, ADHD, anxiety)
ED Past Surgical History: Gynecological
Social History
Tobacco: Former smoker
Alcohol: None
Drug: None
Personal:
Living: with family
Employment: Not employed
Family History
Family History: CAD
Review of Systems
Review of Systems
All Other Systems: ROS reviewed and negative except as documented in HPI and ROS
Constitutional: Reports fatigue; Denies fever or chills
EENT: Reports no symptoms
Respiratory: Reports trouble breathing; Denies cough
Cardiac: Reports syncope (Near); Denies chest pain, diaphoresis or palpitations
ABD/GI: Reports no symptoms
: Reports no symptoms
Musculoskeletal: Reports no symptoms
Skin: Reports no symptoms
Neurological: Reports no symptoms
Hematologic/Lymphatic: Reports no symptoms
Phy Exam
Physical Exam
Physical Exam:
Physical Exam
General: No apparent distress, alert and appropriate, well nourished, well hydrated
HENT: Normocephalic, supple with no lymphadenopathy, no thyromegaly
Eyes: Clear sclera, conjuctiva without injection
Heart: Regular rhythm and rate. No S3, S4. No murmur. No NVD
Lungs: No respiratory distress, no stridor, lung sounds clear and equal bilaterally
Abdomen: Soft, nontender, no organomegaly, BS good
Neuro: Alert and oriented x 3, CN II - XII intact, no motor focality
Skin: no rash
Psychiatric: well kept. interactive and cooperative
Extremities: No edema, cyanosis, tenderness, Good and equal peripheral pulses.
Course
Orders/Labs/Results
Orders:
Orders
08/31/24 12:23
Electrocardiogram (*1) Urgent
Reason for Study: Fatigue / Weakness
08/31/24 12:24
EKG- Treatment ONCE
Complete Blood Count/With Diff Urgent
Comprehensive Metabolic Panel Urgent
08/31/24 16:17
0.9% Sodium Chloride 500 ml [Nss] 500 ml IV BOLUS
US Abdomen Complete/Upper Urgent
Comment:
Reason For Exam: elevated LFT with hypotension
Abnormal Lab Results
08/31/24
12:24
WBC 16.3 H 10^3/uL
(4.8-10.8)
Hgb 11.9 L g/dL
(12.0-16.0)
Hct 35.7 L %
(37.0-47.0)
MCV 77.9 L fL
(81.0-99.0)
MCH 26.0 L pg
(27.0-31.0)
Abs Immat Gran (auto) 0.1 H 10^3/uL
(0-0.05)
Absolute Neuts (auto) 9.4 H 10^3/uL
(1.4-6.5)
Absolute Monos (auto) 1.2 H 10^3/uL
(0.1-0.6)
Absolute Eos (auto) 2.3 H 10^3/uL
(0-0.7)
Lymphocytes % 19.7 L %
(20.5-51.1)
Eosinophils % 14.3 H %
(0-6)
BUN 31 H mg/dl
(7-17)
Creatinine 1.1 H mg/dL
(0.6-1.0)
Glucose 117 H mg/dl
(70-99)
AST 95 H U/L
(14-36)
ALT 159 H U/L
(0-35)
Alkaline Phosphatase 465 H U/L
(38-126)
08/31/24 12:24
08/31/24 12:24
Vital Signs
Initial and Last Documented VS:
Initial Vital Signs
Temp Pulse Resp BP Pulse Ox
98.0 F 84 16 104/70 98
08/31/24 12:17 08/31/24 12:17 08/31/24 12:17 08/31/24 12:17 08/31/24 12:17
Last Documented Vital Signs
Temp Pulse Resp BP Pulse Ox
98.0 F 71 19 136/72 97
08/31/24 12:17 08/31/24 18:20 08/31/24 18:20 08/31/24 18:20 08/31/24 18:20
*Radiology
Radiology exam reviewed: radiology read reviewed (Gallstones without any dilation of the common bile duct)
*Pulse Oximetry
Patient hypoxic: no
*EKG
Interpreted by ED Provider?: Yes
EKG Intrepretation Date: 08/31/24
EKG Intrepretation Time: 19:19
Interpretation: normal
Comparison EKG: no changes
Heart Rate: 75
Rate: normal
Rhythm: sinus
[place]: normal axis
Interval: normal interval
QRS Pattern: normal QRS
Ischemia: no ischemia
*Truant Officer Interpretation
Rate: normal
Interpretation: normal
Heart Rate: 75
Rhythm: sinus
*Critical Care Note
Total Time (30-74mins, 75-104mins- exclusive of procedures): Not Applicable
Update Note
Update Note:
Discussed the findings with the patient and her . Also texted with cardiology. Patient will be referred back to her coke oven patcher as well as the surgeon for the gallstones. I do not believe the gallstones are the reason for the elevated
LFTs although certainly it is a possibility. Believe the Entresto is more the culprit. Patient will stop her Lasix. And continue her Entresto.
ED Attending Note
-
Portions of this chart may have been created with voice recognition software.� Occasional wrong word or��sound alike� substitutions may have occurred due to the inherent limitations of voice recognition software.
Discharge Plan
Departure
Patient Disposition: Home (Routine Discharge)
Date of Disposition: 08/31/24
Time of Disposition: 18:49
Patient with high blood pressure during this ER visit?: No
Condition: Good
Covid-19: Not Applicable
Discharge Problem:
Hypotension, Cholelithiasis, Elevated LFTs
Instructions: Gallstones (DC), Dealing with Low Blood Pressure from the Drugs You Take
Prescriptions:
No Action
quetiapine 200 mg tablet
200 mg PO HS
acetaminophen 500 mg Tablet
1,000 mg PO Q6H PRN (Reason: mild pain/fever/headache)
gabapentin 100 mg capsule
100 mg PO HS
hydroxyzine pamoate 25 mg capsule
50 mg PO HS
duloxetine 60 mg capsule,delayed release(DR/EC)
60 mg PO DAILY
carvedilol 6.25 mg Tablet
6.25 mg PO BID Qty: 60 0RF
dapagliflozin propanediol 10 mg Tablet
10 mg PO DAILY Qty: 30 0RF
furosemide 40 mg Tablet
40 mg PO DAILY Qty: 30 0RF
atorvastatin 20 mg Tablet
20 mg PO QPM Qty: 30 0RF
aspirin 81 mg Tablet,Chewable
81 mg PO DAILY Qty: 30 0RF
lisinopril 10 mg tablet
10 mg PO DAILY Qty: 30 0RF
Referrals:
Armando Elias MD [Active] - Call in 1-3 days for appt
NONE,* [Family Provider] -
Nic Kirby MD [Active] - Call in 1-3 days for appt
Activity Restrictions/Additional Instructions:
Continue the Entresto. Stop the Lasix. Otherwise continue your present medications and therapy. Make sure to follow-up with your coke oven patcher with regards to the Entresto and liver enzymes. The surgeon will evaluate you for gallstones and
possible cholecystectomy. Eat a low-fat diet. Any problems please return.
Interventions
Interventions:
*Risk Screen - Suicide Last Done: 08/31/24 12:17
*General Assessment Last Done: 08/31/24 17:09
*Neglect/Abuse Screening Last Done: 08/31/24 12:17
ED- Fall Risk Assessment Last Done: 08/31/24 17:09
*ED COVID-19 Vaccine History Last Done: 08/31/24 17:09
*Nursing Disposition Last Done: 08/31/24 19:02
ED- Cardiac Assessment Last Done: 08/31/24 17:09
ED- Neurological Assessment Last Done: 08/31/24 17:09
ED- Pulmonary Assessment Last Done: 08/31/24 17:09
Discharge Date and Time
Discharge Date/Time: 08/31/24 19:03
Print Language: TAJIK
[2024-08-31 16:14] VITALS: BP 133/71
[2024-08-31] MEDS: NSS 500 IV (17:55)
[2024-08-31 18:20] VITALS: BP 136/72
== END 2024-08-31 19:03 | disposition home or self-care (01) ==
LOC: EMR 12:14
PROVIDERS: Emergency Medicine; EMERGENCY PHYSICIAN Emergency Medicine
DX: K80.20 Calculus of gallbladder without cholecystitis without obstruction (principal); I95.9 Hypotension, unspecified; R79.89 Other specified abnormal findings of blood chemistry
CPT/HCPCS: 99285; 76700; 80053; 85025; 93005

== ENCOUNTER 2024-09-05 20:36 | Inpatient (IN) | payer MEDICARE, OTHER, SELFPAY ==
[2024-09-05 16:10] VITALS: BP 93/66
[2024-09-05 16:49] LABS: % Basophils 0.4 % (0-2); % Eosinophils 2.9 % (0-6); % Immature Granulocytes 0.5 % (0-0.5); % Lymphocytes 11.6 % (20.5-51.1); % Monocytes 10.9 % (1.7-9.3); % Neutrophils 73.7 % (42.2-75.2); Absolute Basophils 0.1 10^3/uL (0-0.2); Absolute Eosinophils 0.6 10^3/uL (0-0.7); Absolute Immature Granulocytes 0.1 10^3/uL (0-0.05); Absolute Lymphocytes 2.2 10^3/uL (1.2-3.4); Absolute Monocytes 2.1 10^3/uL (0.1-0.6); Absolute Neutrophils 13.8 10^3/uL (1.4-6.5); Hematocrit 34.7 % (37.0-47.0); Hemoglobin 11.7 g/dL (12.0-16.0); Mean Corp Hgb Conc. 33.7 g/dL (33.0-37.0); Mean Corpuscular Hgb 26.4 pg (27.0-31.0); Mean Corpuscular Volume 78.2 fL (81.0-99.0); Mean Platelet Volume 9.6 fL (7.4-10.4); Nucleated Red Blood Cells % 0 %; Platelet Count 367 10^3/uL (130-400); Red Blood Cell Count 4.44 10^6/uL (4.20-5.40); White Blood Cell Count 18.8 10^3/uL (4.8-10.8)
[2024-09-05 16:55] LABS: Anisocytosis Slight; Normal RBC Morphology No
[2024-09-05 16:56] LABS: Macrocytosis 1+
[2024-09-05 17:02] LABS: Stomatocytes 1+
[2024-09-05 17:03] LABS: Target Cells 2+
[2024-09-05 17:05] LABS: ALT (SGPT) 579 U/L (0-35); AST (SGOT) 241 U/L (14-36); Albumin 4.3 g/dl (3.5-5.0); Alkaline Phosphatase 908 U/L (38-126); Blood Urea Nitrogen 18 mg/dl (7-17); Calcium 9.8 mg/dl (8.4-10.2); Carbon Dioxide 18 mmol/L (22-30); Chloride 104 mmol/L (98-107); Glucose 145 mg/dl (70-99); Potassium 5.5 mmol/L (3.5-5.1); Sodium 139 mmol/L (135-145); Total Bilirubin 6.6 mg/dl (0.2-1.3); Total Protein 7.5 g/dl (6.3-8.2); eGFR > 60.00
[2024-09-05 17:31] VITALS: BMI 28.4
[2024-09-05 17:35] VITALS: BP 140/70
--- NOTE | 2024-09-05 17:58 | ED.GENMED ---
History of Present Illness
General
Chief Complaint: Weakness
Source: patient
Exam Limitations: none
Time Seen by Provider: 09/05/24 17:27
Nursing documentation reviewed up to this point in time: agreed with
History of Present Illness
History of Present Illness:
64-year-old female presents with abdominal pain generalized weakness and jaundice. She noticed that she was starting to turn yellow yesterday. Today she had generalized weakness and very pronounced jaundice. She has right-sided upper abdominal
pain. She had an ultrasound earlier in the week and was told that she had gallstones. Patient states that she was told that she had elevated liver function tests since May and June when she started entrego and Farxiga. Patient denies fever or
chills.
Vital signs are stable. Patient not hypoxic
Nursing note reviewed. I agree with nursing documentation up to this point in time.
Home Meds and allergies reviewed.
NUMBER AND COMPLEXITY OF PROBLEMS ADDRESSED AT THE ENCOUNTER
� Chronic conditions affecting care: Congestive heart failure, high blood pressure, GERD, IBS, endometriosis, diabetes
� Acute Exacerbation and/or Progression of Chronic Illness:
� Differential Diagnosis includes: Hepatitis, anemia, hemolysis, gallstone obstruction of the bile duct, tumor
AMOUNT AND/OR COMPLEXITY OF DATA TO BE REVIEWED AND ANALYZED
I performed an independent evaluation of the following and my interpretation is:
EKG:
Pulse Ox: Not Hypoxic
Physical Trainer: Sinus Rhythm
CT:
X-rays:
Ultrasound: See report
Laboratory Studies:
Other:
Review of other/old records:
Clinical information was obtained by an independent historian:
Prescriptions/Medications Considered but not given:
Further testing considered but not performed:
RISK OF COMPLICATIONS AND/OR MORBIDITY OR MORTALITY OF PATIENT MANAGEMENT
Social determinants of health affecting care: Good Social Support, significant other present at the bedside
Discussion with other providers: Spoke with TIMOTHY Reyes
Escalation of care including admission/observation vs risk of discharge considered: After being observed in the emergency department, patient is stable for discharge.
CRITICAL CARE NOTE:
Critical care statement: A total of 45 minutes of critical care time was provided for this patient. This time is separate from time utilized to perform the aforementioned documented procedures. Aggregate critical care time includes only time
during which I was engaged in work directly related to the patient's care, as described above, whether at the bedside or elsewhere in the Emergency Department.
Total Time (exclusive of procedures):45
Update:
Past History
Past History
ED Past Medical History: CAD (Very mild nonobstructive by cardiac catheterization on May 29, 2024), HTN, Hypothyroidism and Psychiatric (Depression, ADHD, anxiety)
ED Past Surgical History: Gynecological
Social History
Tobacco: Former smoker
Alcohol: None
Drug: None
Personal:
Living: with family
Employment: Not employed
Family History
Family History: CAD
Review of Systems
Review of Systems
Allergies reviewed?: Yes
Other source history: family
All Other Systems: ROS reviewed and negative except as documented in HPI and ROS
Constitutional: Reports fatigue and sleep disturbance
EENT: Reports no symptoms
Respiratory: Denies cough or trouble breathing
Cardiac: Denies chest pain
ABD/GI: Reports no symptoms
: Reports no symptoms
Musculoskeletal: Reports no symptoms
Skin: Reports no symptoms
Neurological: Reports no symptoms
Endocrine: Reports no symptoms
Hematologic/Lymphatic: Reports no symptoms
Psychiatric: Reports anxiety
Phy Exam
General Physical Exam
General Presentation: mild distress
General age: appears stated age
General Skin: warm, dry and other (Jaundiced)
General Habitus: normal
General Mental: alert
General Hydration: appears well hydrated
Cardiovascular Exam
Cardiovascular Exam: regular rate/rhythm and no edema
Pulmonary Exam
Pulmonary Exam: lungs clear and no respiratory distress
Neurological Exam
Neurological Exam: alert and oriented x3
Musculoskeletal Exam
Musculoskeletal Exam: full ROM
Skin Exam
Skin Exam: jaundice
Psychiatric Exam
Psychiatric Exam: normal mood/affect
Course
Orders/Labs/Results
Orders:
Orders
09/05/24 16:31
CMP [Comprehensive Metabolic Panel] Urgent
Complete Blood Count/With Diff Urgent
09/05/24 17:53
CT Abd/pelvis W Iv Cont Urgent
Comment:
Reason For Exam: jaundice
09/05/24 17:57
US Abdomen Limited Urgent
Reason For Exam: jaundice, history of gallstones
09/05/24 19:20
CRP [C-Reactive Protein] Urgent
ESR [Erythrocyte Sed Rate] Urgent
Ferritin Urgent
Lactic Acid Q4H
Comment: CANCEL 2nd LACTIC ACID IF 1st LACTIC ACID IS LESS THAN 2
Prothrombin Time Urgent
Tylenol [Acetaminophen] Urgent
09/05/24 19:33
Piperacillin/Tazo 4.5 Gram [Zosyn] 4.5 gram in 100 ml IV NOW
09/05/24 19:38
Ibuprofen [Motrin] 600 mg PO NOW STA
09/05/24 19:51
Blood Culture Urgent
YOVANA Source: Blood/Venous
Specimen Description:
09/05/24 20:07
Admit/Transfer Patient As Directed
Co-Sign Provider:
Level of Care: Inpatient admission
Assign to:: Telemetry
Physician / Group: Loki
Diagnosis: Ascending Cholangitis, Cholelithiasis
Reason for Telemetry: Arrhythmia
Date to Stop Telemetry: 09/08/24
Time to Stop Telemetry: 11:00
Reason for Hospitalization: Ascending Cholangitis, Cholelithiasis
Expected length of stay greater than two midnights?: Yes
ELOS- Estimated Length of Stay in days: 3
I certify the patient meets the requirements for IP care: Yes
PRN Pain Medication Management As Directed
May give lesser potent ordered pain med per pt: Yes
preference::
Protocol:: Medication orders for pain may be administered in a
manner that supports deferring to patient preference
when the pt is:
- Requesting an ordered lesser potent pain medication.
Least to most potent pain medications are defined
as: acetaminophen < NSAID < tramadol < opioids
(morphine, oxycodone, hydromorphone).
- Requesting a lesser dose of the same medication IF
ORDERED.
- Requesting a less intrusive route of administration
if both routes are prescribed by the provider (PO <
IV).
09/05/24 20:09
Code Status As Directed
Resuscitation Status: Full Code
09/05/24 22:00
Lactic Acid Q4H
Comment: CANCEL 2nd LACTIC ACID IF 1st LACTIC ACID IS LESS THAN 2
09/08/24 11:00
DC Protocol for Telemetry ONCE
Abnormal Lab Results
09/05/24 09/05/24
16:31 19:20
WBC 18.8 H 10^3/uL
(4.8-10.8)
Hgb 11.7 L g/dL
(12.0-16.0)
Hct 34.7 L %
(37.0-47.0)
MCV 78.2 L fL
(81.0-99.0)
MCH 26.4 L pg
(27.0-31.0)
Abs Immat Gran (auto) 0.1 H 10^3/uL
(0-0.05)
Absolute Neuts (auto) 13.8 H 10^3/uL
(1.4-6.5)
Absolute Monos (auto) 2.1 H 10^3/uL
(0.1-0.6)
Lymphocytes % 11.6 L %
(20.5-51.1)
Monocytes % 10.9 H %
(1.7-9.3)
ESR 65 H mm/hour
(0-20)
Potassium 5.5 H mmol/L
(3.5-5.1)
Carbon Dioxide 18 L mmol/L
(22-30)
BUN 18 H mg/dl
(7-17)
Glucose 145 H mg/dl
(70-99)
Total Bilirubin 6.6 H mg/dl
(0.2-1.3)
AST 241 H U/L
(14-36)
ALT 579 H* U/L
(0-35)
Alkaline Phosphatase 908 H U/L
(38-126)
C-Reactive Protein 159.50 H mg/L
(0.0-10.00)
Acetaminophen < 10 L ug/ml
(10-30)
09/05/24 16:31
09/05/24 16:31
Vital Signs
Initial and Last Documented VS:
Initial Vital Signs
Temp Pulse Resp BP Pulse Ox
98.2 F 97 18 93/66 98
09/05/24 16:10 09/05/24 16:10 09/05/24 16:10 09/05/24 16:10 09/05/24 16:10
Last Documented Vital Signs
Temp Pulse Resp BP Pulse Ox
101.3 F H 86 17 136/79 100
09/05/24 19:27 09/05/24 19:27 09/05/24 19:27 09/05/24 19:27 09/05/24 17:36
*Critical Care Note
Total Time (30-74mins, 75-104mins- exclusive of procedures): 45 (Critical care statement: A total of 45minutes of critical care time was provided for this patient. This time is separate from time utilized to perform the aforementioned documented
procedures. Aggregate critical care time includes only time during which I was engaged in work directl)
Update Note
Update Note:
Exams: US Abdomen Limited
Limited abdominal ultrasound 09/05/2024 6:25 PM.
Indication: Right upper quadrant abdominal pain.
Comparison: None. .
Findings: Liver is unremarkable in echotexture without evidence of focal lesion. Diffuse intrahepatic and extrahepatic biliary ductal dilatation with the visualized portion of the common duct measuring up to 14 mm. Several large gallstones present.
Gallbladder wall thickening up to 4 mm. No pericholecystic fluid or sonographic Albarran's sign.
Limited visualization of the tail of the pancreas, with the visualized portion of the pancreas unremarkable. Probable peripancreatic lymph node measures up to 2.8 x 1.5 cm.
Impression:
1. Cholelithiasis without convincing sonographic evidence for acute cholecystitis.
2. Diffuse biliary dilatation without an obstructing cause identified sonographically. Cannot rule out CBD stone.
Electronically signed by Rafael Raya, 09/05/2024 6:[address] A/P
IMPRESSION:
Choledocholithiasis, with a few prominent stones seen in the distal CBD, and with associated dilatation of CBD measuring up to 15 mm, as well as mild intrahepatic biliary ductal dilatation. Recommend MRI/MRCP for further assessment.
Cholelithiasis also seen, with trace surrounding pericholecystic fluid and mild gallbladder wall thickening. Correlation with clinical signs/symptoms of cholecystitis is recommended. Ultrasound is recommended for further assessment as well.
Age indeterminate displaced posterosuperior corner of L5 vertebral body fracture with mild retropulsion of the small fracture fragment (203:37). Recommend MRI for further assessment.
additional findings: Vascular calcifications. Post hysterectomy. DJD.
ED Attending Note
-
Portions of this chart may have been created with voice recognition software.� Occasional wrong word or��sound alike� substitutions may have occurred due to the inherent limitations of voice recognition software.
Discharge Plan
Departure
Patient Disposition: Admit
Admit to: IMU
Presentation/result/management discussed w/ accepting MD/DO: Hospitalist
Discharge Problem:
Jaundice, Gallstones
Interventions
Interventions:
*Risk Screen - Suicide Last Done: 09/05/24 16:19
*General Assessment Last Done: 09/05/24 17:38
*Neglect/Abuse Screening Last Done: 09/05/24 16:19
ED- Fall Risk Assessment Last Done: 09/05/24 19:30
*ED COVID-19 Vaccine History Last Done: 09/05/24 16:10
ED- Cardiac Assessment Last Done: 09/05/24 19:33
ED- Neurological Assessment Last Done: 09/05/24 19:33
ED- Pulmonary Assessment Last Done: 09/05/24 19:33
[2024-09-05 19:27] VITALS: BP 136/79
--- NOTE | 2024-09-05 19:35 | EDRN ---
Pt has had elevated liver enzymes since starting farxiga and entresto in May/June. Pt has been having episodes of dizziness with falls. Pt has known gallstones. Pt noted she was jaundiced yesterday and today it got much worse so she came to the
ED for evaluation. Pt notes her urine is orange. Pt has a headache, photophobia, generalized weakness/abd pain, back pain, R side pain. Pt denies fever/cough - had chills earlier in the week. No ill contacts. Pt denies cp but says she has had
palpitations. No sob, n/v/d/constipation. Decreased appetite. Last BM today and was normal.
--- NOTE | 2024-09-05 19:38 | EDRN ---
Dr Belle informed of fever
[2024-09-05 19:39] LABS: INR 1.05; PT 13.5 Sec (11.4-14.6)
[2024-09-05 19:41] LABS: Erythrocyte Sed Rate 65 mm/hour (0-20)
[2024-09-05] MEDS: MOTRIN 600 MG PO (19:44)
[2024-09-05 19:49] LABS: Acetaminophen < 10 ug/ml (10-30)
[2024-09-05] MEDS: ZOSYN 100 IV (19:52)
--- NOTE | 2024-09-05 20:13 | HPS.HSE ---
Family Physician
-
Family Physician: Roma Garibay MD
Chief Complaint
-
RUQ Pain, Jaundice
History of Present Illness
Patient is a 64y F with PMH significant for hypertension, nonischemic cardiomyopathy and HFrEF who presents to ED complaining of 'turning yellow'. Patient states that she has had intermittent RUQ pain over the past several months. She states
that this tends to occur when she 'bumps into something'. She has not appreciated that it specifically occurs after meals, etc. She denies any N/V.
She was recently diagnosed with CHF (May 2024) and started on several new medications at that time.
Since then, she has been feeling progressively more lightheaded and weak. She was seen here in the ED on 08/31 for these complaints and noted to have abnormal LFTs. She had no GI complaints / pain at that time.
Patient states that she has since had intermittent shaking chills and increased RUQ pain.
Today she noted that her skin appeared yellow and she returned to the ED for further evaluation.
Medical History
Past Medical History
Past Medical History: Reports Other
Additional Past Medical History:
Hypertension
Chronic HFrEF
DM-II
Anxiety
GERD / Hiatal Hernia
Migraines
Endometriosis
Past Surgical History: Reports Other
Additional Past Surgical History:
JAVI
Social History
Tobacco: Former Smoker (Quit smoking in 1981. )
Alcohol: None
Drug: None
Family History
Family History: Not pertinent
Allergies / Home Medications
Allergies reflects when Allergies were last updated in [facility].
Home Medications with original date entered in [facility]
Allergy/Medication List:
Allergies
Allergy/AdvReac Type Severity Reaction Status Date / Time
Estrogens Allergy Hives Verified 09/05/24 16:17
methyltestosterone Allergy Hives Verified 09/05/24 16:17
metoprolol Allergy Unknown Verified 09/05/24 16:17
propoxyphene Allergy Unknown Verified 09/05/24 16:17
sertraline Allergy Unknown Verified 09/05/24 16:17
sumatriptan Allergy Unknown Verified 09/05/24 16:17
Home Medications
acetaminophen 500 mg tablet 1,000 mg PO Q6H PRN mild pain/fever/headache 05/27/24
duloxetine 60 mg capsule,delayed release 60 mg PO DAILY Neurological Condition 05/27/24
gabapentin 100 mg capsule 100 mg PO HS Neurological Condition 05/27/24
quetiapine 200 mg tablet 200 mg PO HS Mental Health/Anxiety 05/27/24
aspirin 81 mg chewable tablet 81 mg PO DAILY #30 tabs 05/30/24
atorvastatin 20 mg tablet 20 mg PO QPM #30 tabs 05/30/24
carvedilol 6.25 mg tablet 6.25 mg PO BID #60 tabs 05/30/24
dapagliflozin propanediol 10 mg tablet 10 mg PO DAILY #30 tabs 05/30/24
sacubitril 24 mg-valsartan 26 mg tablet (Entresto) 1 tab PO BID 09/05/24
Review of Systems
-
History Source: Patient
A 12 point ROS was completed and negative except as noted: Yes
Constitutional: Reports Fatigue and Chills; Denies Fever
EENT: Denies Sore Throat
Respiratory: Denies Cough or Trouble Breathing
Cardiac: Denies Chest Pain or Palpitations
Abdomen/GI: Reports Abdominal Pain; Denies Nausea, Vomiting or Diarrhea
: Denies Dysuria, Frequency or Flank Pain
Musculoskeletal: Denies Joint Pain or Edema
Neurological: Reports Dizzy; Denies Headache
Psych: Denies Depression or Anxiety
Physical Exam
Vital Signs
Vital Signs
Temp Pulse Resp BP Pulse Ox
101.3 F H 86 17 136/79 100
09/05/24 19:27 09/05/24 19:27 09/05/24 19:27 09/05/24 19:27 09/05/24 17:36
Physical Exam
General: Other (Jaundiced 64y F in mild distress due to abdominal discomfort and anxiety.)
HEENT: Moist mucous membranes and PERRLA
Respiratory: Clear; No Wheezes, Rales or Rhonchi
Cardiac: S1/S2 and Regular Rhythm; No Murmur
GI: Soft, Non Distended, Normal Bowel Sounds and Other (Pos RUQ tenderness with voluntary guarding.)
Musculoskeletal: No Clubbing, No Cyanosis and No Edema
Neuro: AO x 3
Laboratory Results
-
09/05/24 16:31
09/05/24 16:31
Laboratory Results
PT 13.5 Sec (11.4-14.6) 09/05/24 19:20
INR 1.05 09/05/24 19:20
Lactic Acid 1.0 mmol/L (0.7-2.0) 09/05/24 19:20
Total Bilirubin 6.6 mg/dl (0.2-1.3) H 09/05/24 16:31
AST 241 U/L (14-36) H 09/05/24 16:31
ALT 579 U/L (0-35) H* 09/05/24 16:31
Alkaline Phosphatase 908 U/L (38-126) H 09/05/24 16:31
Impression/Plan
-
A/P: Patient is a 64y F with PMH significant for HTN and CHF who presents to ED complaining of RUQ pain and jaundice.
Ascending Cholangitis
Cholelithiasis
- Admit for further evaluation and treatment.
- Patient presents with fever, RUQ pain and abnormal LFTs c/w cholangitis.
- IV Zosyn, IVF support, pain control, etc.
- Follow up culture data.
- GI and Surgery evaluations for additional recommendations.
- May benefit from ERCP.
- Will benefit from eventual cholecystectomy.
- Follow for clinical improvement.
Benign Hypertension
- Has been hypotensively more recently on diuretics (see below).
- Continue carvedilol with holding parameters.
- Adjust regimen as needed.
Chronic HFrEF
- Stable. Patient does not appear volume overloaded.
- Suspect degree of volume depletion after months of diuretic therapy.
- Hold Lasix and Entresto acutely.
- Gentle IVFs overnight.
DM-II
- Patient had prior A1C that was 7.7%.
- Follow glucose and cover with SSI as needed.
- Update A1C.
DVT Prophylaxis: SCDs
Code Status: Full
--- NOTE | 2024-09-05 21:29 | EDRN ---
Dr Belle informed pt has admission orders which include IVF and is going to her room in approximately 10 minutes - order Dr Belle placed for NS not needed at this time.
--- NOTE | 2024-09-05 21:30 | PTCARENOTE ---
pt arrived to [facility] [address] from ED. AAOx3, very pleasant, assisted into room. IVF started per order, plan of care explained, all questions answered. Heart Failure education packet given to pt. Assessment on going.
[2024-09-05 21:35] VITALS: BP 117/63
[2024-09-05 21:40] VITALS: BP 147/72; BMI 28.1
[2024-09-05] MEDS: NEURONTIN 100 MG PO (22:46)
[2024-09-05] MEDS: SEROQUEL 200 MG PO (22:46)
[2024-09-05] MEDS: NSS 1000 IV (22:47)
[2024-09-05] MEDS: COREG 6.25 MG PO (23:06)
[2024-09-05 23:20] VITALS: BMI 28.1
[2024-09-05 23:36] LABS: Glucose - Point of Care 139 mg/dl (70-99)
[2024-09-05 23:38] VITALS: BP 100/60
[2024-09-06] VITALS (11 sets, daily range): BP systolic 75–109; BP diastolic 36–75; PULSE 80–89; BMI 28.2
[2024-09-06] MEDS: ZOSYN 50 IV ×4 (02:04→20:30)
[2024-09-06 05:42] LABS: Hematocrit 28.8 % (37.0-47.0); Hemoglobin 9.9 g/dL (12.0-16.0); Mean Corp Hgb Conc. 34.4 g/dL (33.0-37.0); Mean Corpuscular Hgb 26.8 pg (27.0-31.0); Mean Platelet Volume 9.9 fL (7.4-10.4); Platelet Count 300 10^3/uL (130-400); Red Blood Cell Count 3.69 10^6/uL (4.20-5.40); White Blood Cell Count 16.4 10^3/uL (4.8-10.8)
[2024-09-06 05:54] LABS: ALT (SGPT) 399 U/L (0-35); AST (SGOT) 176 U/L (14-36); Albumin 3.3 g/dl (3.5-5.0); Alkaline Phosphatase 806 U/L (38-126); Blood Urea Nitrogen 16 mg/dl (7-17); Calcium 9.2 mg/dl (8.4-10.2); Carbon Dioxide 20 mmol/L (22-30); Chloride 104 mmol/L (98-107); Direct Bilirubin 5.7 mg/dl (0.0-0.4); Estimated Creatinine Clearance 61 ml/min; Glucose 108 mg/dl (70-99); Sodium 136 mmol/L (135-145); Total Protein 6.1 g/dl (6.3-8.2); eGFR > 60.00
[2024-09-06 06:17] LABS: Glucose - Point of Care 113 mg/dl (70-99)
--- NOTE | 2024-09-06 08:31 | CON.GI ---
Consultation
-
Date/Time Consultation Requested: 09/05/24
Date/Time Consultation Performed: 09/05/24
Requesting Provider: Emergency room
Performing Provider: Dr. Gonzalez
Reason for Consultation: Right upper quadrant abdominal pain
Medical History
Chief Complaint / HPI
Chief Complaint: Abdominal pain and jaundice
History of Present Illness:
Meena is a 64-year-old female who has not been followed by many physicians until this year when she was admitted over the summer for new onset heart failure with an EF of 40% now on Entresto and Farxiga. Followed by cardiology as an outpatient.
Over the past month she has been having intermittent epigastric pain that radiates into her back. Lasts hours at a time without any significant nausea or vomiting. Yesterday the symptoms progressed and were severe and was also noted to be
jaundiced. In the emergency room she was febrile to 101, leukocytosis of 18,000, microcytic anemia with a platelet count over 300. She is not on any blood thinners and takes aspirin and atorvastatin and is beta blocked. Her total bilirubin 6.6,
AST 241, ALT 579, alkaline phosphatase 908, CRP 160. No lipase was performed. Creatinine is normal at 0.9 BUN 18.
Initially an ultrasound was performed showing cholelithiasis without significant acute cholecystitis with diffuse biliary dilatation. Visualized pancreas was unremarkable. Possible peripancreatic lymph node measuring 2.8 x 1.5 cm.
Because MRI machine was unavailable she underwent CT scan which showed a normal-appearing pancreas, bile ducts with significant intra and extrahepatic dilation with a radiopaque stone seen in the distal common bile duct. Gallbladder shows multiple
gallstones with mild gallbladder wall thickening and pericholecystic edema.
Allergies / Home Medications
Allergy/AdvReac Type Severity Reaction Status Date / Time
Estrogens Allergy Hives Verified 09/05/24 16:17
methyltestosterone Allergy Hives Verified 09/05/24 16:17
metoprolol Allergy Unknown Verified 09/05/24 16:17
propoxyphene Allergy Unknown Verified 09/05/24 16:17
sertraline Allergy Unknown Verified 09/05/24 16:17
sumatriptan Allergy Unknown Verified 09/05/24 16:17
�Medication �Instructions �Recorded
acetaminophen 500 mg tablet 1,000 mg PO Q6H PRN mild 05/27/24
pain/fever/headache
duloxetine 60 mg capsule,delayed 60 mg PO DAILY Neurological 05/27/24
release Condition
gabapentin 100 mg capsule 100 mg PO HS Neurological Condition 05/27/24
quetiapine 200 mg tablet 200 mg PO HS Mental Health/Anxiety 05/27/24
aspirin 81 mg chewable tablet 81 mg PO DAILY #30 tabs 05/30/24
atorvastatin 20 mg tablet 20 mg PO QPM #30 tabs 05/30/24
carvedilol 6.25 mg tablet 6.25 mg PO BID #60 tabs 05/30/24
dapagliflozin propanediol 10 mg 10 mg PO DAILY #30 tabs 05/30/24
tablet
sacubitril 24 mg-valsartan 26 mg 1 tab PO BID 09/05/24
tablet (Entresto)
Review of Systems
Vital Signs
Temp Pulse Resp BP Pulse Ox
98.0 F 70 16 103/59 97
09/06/24 07:10 09/06/24 07:10 09/06/24 07:10 09/06/24 07:10 09/06/24 07:10
Physical Exam
Results
WBC 16.4 10^3/uL (4.8-10.8) H 09/06/24 04:51
Hgb 9.9 g/dL (12.0-16.0) L 09/06/24 04:51
Hct 28.8 % (37.0-47.0) L 09/06/24 04:51
MCV 78.0 fL (81.0-99.0) L 09/06/24 04:51
Plt Count 300 10^3/uL (130-400) 09/06/24 04:51
Absolute Neuts (auto) 13.8 10^3/uL (1.4-6.5) H 09/05/24 16:31
PT 13.5 Sec (11.4-14.6) 09/05/24 19:20
INR 1.05 09/05/24 19:20
Sodium 136 mmol/L (135-145) 09/06/24 04:51
Potassium 4.0 mmol/L (3.5-5.1) D 09/06/24 04:51
Chloride 104 mmol/L (98-107) 09/06/24 04:51
Carbon Dioxide 20 mmol/L (22-30) L 09/06/24 04:51
BUN 16 mg/dl (7-17) 09/06/24 04:51
Creatinine 0.9 mg/dL (0.6-1.0) 09/06/24 04:51
Calcium 9.2 mg/dl (8.4-10.2) 09/06/24 04:51
Total Bilirubin 7.0 mg/dl (0.2-1.3) H 09/06/24 04:51
AST 176 U/L (14-36) H 09/06/24 04:51
ALT 399 U/L (0-35) H 09/06/24 04:51
Alkaline Phosphatase 806 U/L (38-126) H 09/06/24 04:51
Diagnostic Image Results:
--- 09/05/24 ultrasound was performed showing cholelithiasis without significant acute cholecystitis with diffuse biliary dilatation. Visualized pancreas was unremarkable. Possible peripancreatic lymph node measuring 2.8 x 1.5 cm.
---- 09/05/24 Because MRI machine was unavailable she underwent CT scan which showed a normal-appearing pancreas, bile ducts with significant intra and extrahepatic dilation with a radiopaque stone seen in the distal common bile duct. Gallbladder
shows multiple gallstones with mild gallbladder wall thickening and pericholecystic edema.
Prior GI Procedures: None
EGD: Never
Colonoscopy: Never
Assessment / Plan
-
Meena is a 64-year-old female with newly diagnosed heart failure over the summer, coming in with significant epigastric pain and jaundice found to have choledocholithiasis on imaging with fever, leukocytosis/cholangitis
# Cholangitis -patient with significant leukocytosis, fever on admission, bilirubin of 7 and imaging consistent with choledocholithiasis
-- Patient on empiric antibiotics, blood culture pending
-- Slight improvement of pain overnight, no fever since last night
-- To undergo ERCP this morning
-- General Surgery consult for eventual cholecystectomy
# Microcytic anemia -no prior workup
-- Should get iron studies eventually
-- Will need eventual outpatient colonoscopy
-- Patient does have chronic reflux that is untreated. She is under the assumption her PPI would interfere with her medications
-- Just to be safe, I did do an interaction weight checker and there are no interactions between pantoprazole and her medications
#CHF - EF 40% on Entreso and Farixga
Total Time Spent with Patient (in minutes): 55
Data Reviewed
-
CT Scan: Image Personally Visualized and interpreted and Report Reviewed by me
Ultrasound: Report Reviewed by me
Old Records: Reviewed
-
-
Thank you for consultation and allowing me to participate in the patient's care. Please call the [facility] physician during the after hours with any questions or concerns.
[2024-09-06] MEDS: NSS (PRESERVATIVE FREE) 10 ML IV (08:49)
[2024-09-06] MEDS: PROTONIX IV 40 MG IV (08:50)
[2024-09-06] MEDS: CYMBALTA DELAYED RELEASE 60 MG PO (10:24)
[2024-09-06] MEDS: COREG 6.25 MG PO (10:25)
--- NOTE | 2024-09-06 10:33 | PTCARENOTE ---
assumed care of pt at 0715. assessment as documented. pt transported via stretcher by volunteer to GI lab at 0900 and returned s/p ERCP at 1025 without incident. VS: 98.8-84-16-103/62. pt instructed about clear liquid diet for today and
provided with menu. care ongoing.
--- NOTE | 2024-09-06 10:51 | W.PN.HOSP.TC ---
Today's Communication/Plan
-
See plan above
Assessment / Plan
Assessment / Plan
A/P: Patient is a 64y F with PMH significant for HTN and CHF who presents to ED complaining of RUQ pain and jaundice.
Ascending Cholangitis
obstructing choledocholithiasis
Cholelithiasis with acute cholecystitis
status post ERCP 09/06. Follow LFTs.
Await surgery input.
Continue with antibiotics.
Start on clear liquid diet.
CW IV fluids till intake adequate and dc
-
Benign Hypertension
- Has been hypotensively more recently on diuretics (see below).
- Continue carvedilol with holding parameters.
- Adjust regimen as needed.
Chronic HFrEF
- Stable. Compensated.
- Suspect degree of volume depletion after months of diuretic therapy.
- Hold Lasix and Entresto acutely.
DM-II
- Patient had prior A1C that was 7.7%.
- Follow glucose and cover with SSI as needed.
- Update A1C.
DVT Prophylaxis: SCDs
Code Status: Full
total time spent on today's encounter was 52 minutes which included time spent in counseling the patient/ regarding diagnosis and treatment plan as listed above, goals of care, and symptom management. Case was discussed with nursing staff,
specialists, All labs and imaging personally reviewed by me. Remainder the time spent in detailed review of previous records, lab data, imaging, and other medical provider documentation.
Anticipated Discharge: > 48 hours
Subjective/Interval History
-
Date of Service: September 06, 2024
Back from ERCP. No nausea vomiting. Eager to take clear liquids. Abdominal pain mild to moderate but no worse.
Objective Data
-
Labs:
Laboratory Results
09/06/24
04:51
WBC 16.4 H
Hgb 9.9 L
Hct 28.8 L
Plt Count 300
Sodium 136
Potassium 4.0 D
Chloride 104
Carbon Dioxide 20 L
BUN 16
Creatinine 0.9
Glucose 108 H
Calcium 9.2
Total Bilirubin 7.0 H
AST 176 H
ALT 399 H
Alkaline Phosphatase 806 H
Vital Signs:
Vital Signs
Temp Pulse Resp BP Pulse Ox
98.8 F 84 16 103/62 98
09/06/24 10:26 09/06/24 10:26 09/06/24 10:26 09/06/24 10:26 09/06/24 10:26
I&O
09/05/24 09/06/24 09/07/24
06:59 06:59 06:59
Intake Total 760 / 760
Output Total 1000 / 1000
Balance 760 / 760 -1000 / -1000
Review of Systems
-
Constitutional: Denies Fever or Chills
Respiratory: Denies Trouble Breathing
Cardiac: Denies Chest Pain or Palpitations
Neuro: Denies Dizzy
Physical Exam
-
General: No Apparent Distress
HEENT: Moist Mucous Membranes
Respiratory: Non Labored Respirations; Negative Accessory Resp Muscle Use
Cardiac: Regular Rhythm and S1/S2
GI: Soft, Nondistended, Normal Bowel Sounds and Tender ( Right upper quadrant)
Neuro: AO x 3
Data Reviewed
-
Labs: Labs Reviewed by me
[2024-09-06] MEDS: MOTRIN 400 MG PO ×3 (11:04→20:45)
[2024-09-06 11:33] LABS: Glucose - Point of Care 123 mg/dl (70-99)
[2024-09-06] MEDS: NSS 1000 IV ×2 (11:49→22:15)
--- NOTE | 2024-09-06 12:42 | CON.GS ---
Consultation
-
Date/Time Consultation Requested: 09/05/2024, 21:46
Date/Time Consultation Performed: 09/06/2024, 11:45
Requesting Provider: Nils Manjarrez DO
Performing Provider: Thanh Foote MD
Reason for Consultation: Right upper quadrant abdominal pain
Medical History
-
Chief Complaint: Right upper quadrant abdominal pain
History of Present Illness:
64-year-old female, with a past medical history of heart failure, presents due to right upper quadrant pain. She admitted admitted previously over this past summer due to new onset heart failure and is on Entresto and Farxiga. Over the past month
she had intermittent epigastric pain that radiated to her back. Yesterday her symptoms worsened and she was jaundiced in color. She came to the ER given the pain. In the ER her white count was 18.8. She had a temperature of 101.3. Her bilirubin
is 6.6, AST 241, and ALT 579. An ultrasound showed cholelithiasis without significant acute cholecystitis with diffuse bile diltation. She did underwent a CT scan which showed a normal-appearing pancreas, bile ducts with significant intra and
extrahepatic dilation with a radiopaque stone in the distal common bile duct. The gallbladder showed multiple gallstones with mild gallbladder wall thickening and a pericholecystic edema. She underwent an ERCP by gastroenterology this morning. It
showed pus in the major papilla with a fistula proximal to the os. Filling defects consistent with stones. The entire main bile duct was dilated. Choledocholithiasis was found. Complete removal was accomplished by the biliary sphincterotomy.
The biliary tree was swept and pus was found. We have been consulted for further surgical opinion.
Past Medical History
Past Medical History: Other (Hypertension, Chronic HFrEF, DM-II , Anxiety, GERD, Hiatal Hernia, Migraines, Endometriosis)
Past Surgical History: Gynecological (Hysterectomy)
Social History
Tobacco: Former Smoker
Alcohol: None
Drug: None
Family History
Family History: Reviewed & Not Pertinent
Allergies / Home Medications
Allergy/AdvReac Type Severity Reaction Status Date / Time
Estrogens Allergy Hives Verified 09/05/24 16:17
methyltestosterone Allergy Hives Verified 09/05/24 16:17
metoprolol Allergy Unknown Verified 09/05/24 16:17
propoxyphene Allergy Unknown Verified 09/05/24 16:17
sertraline Allergy Unknown Verified 09/05/24 16:17
sumatriptan Allergy Unknown Verified 09/05/24 16:17
�Medication �Instructions �Recorded �Confirmed �Type
acetaminophen 500 mg tablet 1,000 mg PO Q6H PRN mild 05/27/24 09/05/24 History
pain/fever/headache
duloxetine 60 mg capsule,delayed 60 mg PO DAILY Neurological 05/27/24 09/05/24 History
release Condition
gabapentin 100 mg capsule 100 mg PO HS Neurological Condition 05/27/24 09/05/24 History
quetiapine 200 mg tablet 200 mg PO HS Mental Health/Anxiety 05/27/24 09/05/24 History
aspirin 81 mg chewable tablet 81 mg PO DAILY #30 tabs 05/30/24 09/05/24 Rx
atorvastatin 20 mg tablet 20 mg PO QPM #30 tabs 05/30/24 09/05/24 Rx
carvedilol 6.25 mg tablet 6.25 mg PO BID #60 tabs 05/30/24 09/05/24 Rx
dapagliflozin propanediol 10 mg 10 mg PO DAILY #30 tabs 05/30/24 09/05/24 Rx
tablet
sacubitril 24 mg-valsartan 26 mg 1 tab PO BID Heart Failure 09/05/24 09/05/24 History
tablet (Entresto)
Review of Systems
-
History Source: Patient
Abdomen/GI: Abdominal Pain
A 10 point review of systems was completed, and was negative except as per HPI.
Physical Exam
Vital Signs
Temp Pulse Resp BP Pulse Ox
98.7 F 71 16 78/36 96
09/06/24 11:36 09/06/24 12:36 09/06/24 11:36 09/06/24 12:36 09/06/24 11:36
09/05/24 09/06/24 09/07/24
06:59 06:59 06:59
Actual Weight 74.389 kg
Body Mass Index (BMI) 28.2
Lab Results
09/06/24 04:51
09/06/24 04:51
WBC 16.4 10^3/uL (4.8-10.8) H 09/06/24 04:51
Hgb 9.9 g/dL (12.0-16.0) L 09/06/24 04:51
Hct 28.8 % (37.0-47.0) L 09/06/24 04:51
Plt Count 300 10^3/uL (130-400) 09/06/24 04:51
Abs Immat Gran (auto) 0.1 10^3/uL (0-0.05) H 09/05/24 16:31
Neutrophils % 73.7 % (42.2-75.2) 09/05/24 16:31
Physical Exam
General: Well Developed, Well Nourished and No Apparent Distress
GI: Soft, Non Distended and Tender (Mild right upper quadrant)
Neuro: AO x 3
Psych: Calm
Data Reviewed
-
Radiology: Report Reviewed by me
CT Scan: Image Personally Visualized and interpreted, Report Reviewed by me and Discussed with Patient
Labs: Labs Reviewed by me, Discussed with Physician and Discussed with Patient
Old Records: Reviewed
Assessment / Plan
-
Assessment: 64-year-old female with right upper quadrant pain for several months with worsening pain yesterday and jaundice, presents to the ER with ascending cholangitis and underwent a successful ERCP today
Plan:
-Will need eventual resection of the gallbladder but no surgery planned for today
-Trend LFTs
-Continue antibiotics
-Remain on clear liquids
[2024-09-06 12:58] LABS: Glycohemoglobin (HgbA1c) 7.1 % (4.0-5.6)
--- NOTE | 2024-09-06 15:20 | CM ---
Dx - RUQ Pain, Jaundice
Met with pt and her at bedside
Pt reports she lives with her in a 3 story home; 3steps to enter, 13 steps to 2nd fl
Retired, self-care, independent - generalized weakness recently
DME - none
SNF/HH -denies past hx
Has ride at discharge
PCP - Roma Garibay
Pharm - [facility]
Plan - anticipate home no needs at this time
[2024-09-06] MEDS: COREG PO (20:39)
[2024-09-06 21:49] LABS: Glucose - Point of Care 323 mg/dl (70-99)
[2024-09-06] MEDS: SEROQUEL 200 MG PO (22:05)
[2024-09-06] MEDS: NEURONTIN 100 MG PO (22:05)
[2024-09-06 23:50] LABS: Glucose - Point of Care 238 mg/dl (70-99)
[2024-09-07] VITALS (16 sets, daily range): BP systolic 89–131; BP diastolic 48–67; BMI 28.4
[2024-09-07] MEDS: ZOSYN 50 IV ×4 (01:15→20:54)
[2024-09-07 06:58] LABS: ALT (SGPT) 305 U/L (0-35); AST (SGOT) 101 U/L (14-36); Albumin 3.2 g/dl (3.5-5.0); Alkaline Phosphatase 797 U/L (38-126); Direct Bilirubin 2.3 mg/dl (0.0-0.4); Total Bilirubin 3.6 mg/dl (0.2-1.3)
[2024-09-07 07:34] LABS: Glucose - Point of Care 169 mg/dl (70-99)
[2024-09-07] MEDS: NOVOLOG FLEXPEN-LOW RESISTANCE SC ×3 (08:15→17:35)
--- NOTE | 2024-09-07 08:23 | W.PN.HOSP.TC ---
Today's Communication/Plan
-
Continue antibiotics
Initial blood cultures growing strep
Repeat blood cultures
Continue Zosyn
Consulted ID, appreciate their evaluation and recommendations
Assessment / Plan
Assessment / Plan
Physical Exam
Physical Exam was not performed as patient was not present in her room at the time of attempted patient encounter.
Assessment/Plan
Patient is a 64 y/o female with past medical history significant for hypertenion and CHF who presents to ED complaining of RUQ pain and jaundice.
Ascending Cholangitis obstructing choledocholithiasis
Cholelithiasis with chronic cholecystitis status post laparoscopic cholecystectomy with cholangiogram on 09/07/24
status post ERCP 09/06. Follow LFTs
Positive blood cultures with streptococcus species
-Continue with antibiotics Zosyn
-Repeat blood cultures given strep growth on initial blood culture
-Consulted ID, appreciate evaluation and recommendations
-Low fat diet
-Outpatient GI follow-up for colonoscopy
Hypotension -- on 09/07/24 -- post-op
-Systolic Blood Pressure in the low 80s post-op on 09/07/24
-IV fluids bolus (with improvement in SBP) and continuous started by cardiology, appreciate cardiology
-Continue IV fluids 100 ML�s per hour as ordered by cardiology
-Entresto on hold
-Per Dr. Leonard although patient has a history of heart failure, we of course need to address her hypotension and depletion in the setting of recent surgery as well as infection and she requires lots of volume to keep blood pressure up
Benign Hypertension
- Has been hypotensively more recently on diuretics (see below).
- Continue carvedilol with holding parameters.
- Adjust regimen as needed.
Chronic HFrEF - history of nonischemic cardiomyopathy ejection fraction of 40%
- Stable. Compensated.
- Suspect degree of volume depletion after months of diuretic therapy.
- Hold Lasix and Entresto acutely.
DM-II
- Patient had prior A1C that was 7.7%.
- Follow glucose and cover with SSI as needed.
- Update A1C.
- Consulted Diabetes METAL STAMPING MACHINE OPERATOR, appreciate evaluation and recommendations
DVT Prophylaxis: SCDs. Kenyettanox.
Code Status: Full
Anticipated Discharge: 24 - 48 hours
Subjective/Interval History
-
Date of Service: September 07, 2024
Patient was not present in her room at the time of attempted patient encounter. Chart reviewed and case discussed with patient's nurse.
Objective Data
-
Labs:
Laboratory Results
09/07/24
05:01
Total Bilirubin 3.6 H
AST 101 H
ALT 305 H
Alkaline Phosphatase 797 H
Vital Signs:
Vital Signs
Temp Pulse Resp BP Pulse Ox
98.3 F 74 15 107/61 96
09/07/24 07:34 09/07/24 07:34 09/07/24 07:34 09/07/24 07:34 09/07/24 07:34
I&O
09/06/24 09/07/24 09/08/24
06:59 06:59 06:59
Intake Total 760 / 760 2340 / 2340
Output Total 1000 / 1000
Balance 760 / 760 1340 / 1340
[2024-09-07] MEDS: CYMBALTA DELAYED RELEASE 60 MG PO (09:09)
[2024-09-07] MEDS: COREG 6.25 MG PO (09:09)
[2024-09-07] MEDS: NSS (PRESERVATIVE FREE) 10 ML IV (09:09)
[2024-09-07] MEDS: PROTONIX IV 40 MG IV (09:10)
[2024-09-07] MEDS: MOTRIN 400 MG PO ×3 (09:17→21:38)
--- NOTE | 2024-09-07 09:41 | W.SUR.PREOP ---
Pre-Operative Surgical Note
-
I have examined this patient prior to the performance of the scheduled procedure.
The patient's condition is unchanged from the time of the current History and
Physical and the patient is able to undergo the scheduled procedure.
--- NOTE | 2024-09-07 09:47 | W.PN.GS2 ---
Today's Communication / Plan
-
OR today
Assessment / Plan
-
This is a 64-year-old female who presented to our hospital on 09/05/2024 with ascending cholangitis and underwent a successful ERCP on 09/06/2024. She is recovering well from this and is interested in interval cholecystectomy this admission. She
does have some cardiac dysfunction with a recent echo of an EF of 40%. She reports no cardiac complaints at this time.
N.p.o., IV fluids, IV antibiotics.
Will plan for laparoscopic cholecystectomy with cholangiogram in the OR today.
Cards consult for preoperative risk ratification.
Risks/Benefits/Alternatives, expected postoperative course and possible complications (bleeding, infection, injury to surrounding structures, acute/chronic pain) discussed at length. Patient wishes to proceed with surgery. All questions answered.
Consent obtained.
I spent roughly 60 minutes in total for the care of this patient today including direct patient care and counseling, reviewing labs, imaging, coordination of care, as well as documentation.
Time Spent
Total Time Spent with Patient (in minutes): 35
Subjective Data
-
Date of Service: September 07, 2024
Interval Events:
Successful ERCP yesterday. No acute events overnight. Slept well. Pain Controlled. Denies Nausea/Vomiting. Tolerated clears overnight.
Objective Data
-
Intake and Output
09/06/24 09/07/24 09/08/24
06:59 06:59 06:59
Intake Total 760 / 760 2340 / 2340
Output Total 1000 / 1000
Balance 760 / 760 1340 / 1340
Intake:
Oral fluids 120 / 120 480 / 480
IV fluids (Total) 640 / 640 1760 / 1760
IV piggybacks 100 / 100
Output:
Urine, Garcia 1000 / 1000
Other:
Number of approximated SMALL 1
amounts of urine
Number of approximated LARGE 1
amounts of urine
Vital Signs
Temp Pulse Resp BP Pulse Ox
98.3 F 74 15 107/61 96
09/07/24 07:34 09/07/24 09:09 09/07/24 07:34 09/07/24 09:09 09/07/24 07:34
Lab Results
09/06/24 04:51
09/06/24 04:51
Calcium 9.2 mg/dl (8.4-10.2) 09/06/24 04:51
Total Bilirubin 3.6 mg/dl (0.2-1.3) H 09/07/24 05:01
Direct Bilirubin 2.3 mg/dl (0.0-0.4) H 09/07/24 05:01
AST 101 U/L (14-36) H 09/07/24 05:01
ALT 305 U/L (0-35) H 09/07/24 05:01
Alkaline Phosphatase 797 U/L (38-126) H 09/07/24 05:01
Total Protein 6.0 g/dl (6.3-8.2) L 09/07/24 05:01
Albumin 3.2 g/dl (3.5-5.0) L 09/07/24 05:01
Physical Exam
-
GENERAL/NEURO: Awake, Alert, no distress
CHEST: Unlabored breathing on RA
ABDOMEN: Soft, obese, large lower midline incision. Mildly tender to palpation in the right upper quadrant.
--- NOTE | 2024-09-07 10:07 | CM ---
Patient at OR for for laparoscopic cholecystectomy with cholangiogram
CM to follow for any needs.
PLAN: Discharge to home when stable, no needs anticipated ?VN
[2024-09-07 10:14] LABS: Glucose - Point of Care 191 mg/dl (70-99)
--- NOTE | 2024-09-07 10:28 | CON.CAR ---
Consultation
Consultation Request
Date/Time Consultation Requested: 09/07/2024 at 1030
Date/Time Consultation Performed: 09/07/2024 at 1030
Requesting Provider: Hospitalist
Performing Provider: Dr. Leonard
Reason for Consultation: Preprocedure evaluation history of cardiomyopathy
Medical History
-
History of Present Illness:
64-year-old woman with history of nonischemic cardiomyopathy ejection fraction 40%, hypertension and diabetes who presented with right upper quadrant pain and had a fever up to 101 significant elevation in LFTs. Patient reported to have ascending
cholangitis. On antibiotics 1 blood culture positive full results pending. Patient was seen by GI. Multiple gallstones and gallbladder patient had ERCP. Now post op Laparoscopic cholecystectomy with cholangiogram 09/07/24
Past medical history
Heart failure reduced ejection fraction ejection fraction 40%
Hospitalization with heart failure in the setting of hypertension and ejection fraction of 40%
Hypertension
Hypercholesterolemia [id number] diabetes
Migraines
Endometriosis
Hiatal hernia
Ovarian cyst
Anxiety
Social history non-smoker
Family history father with stroke
Cardiac catheterization 05/29/2024 LAD and left circumflex with mild luminal irregularities RCA 10 to 20%. No evidence of obstructive disease. Ejection fraction 41%
Echocardiogram 05/2024 ejection fraction 40%
Past Medical History
Past Medical History: Other (As above)
Social History
Tobacco: Non-Smoker
Family History
Family History: Other (As above)
Allergies / Home Medications
Allergy/AdvReac Type Severity Reaction Status Date / Time
Estrogens Allergy Hives Verified 09/05/24 16:17
methyltestosterone Allergy Hives Verified 09/05/24 16:17
metoprolol Allergy Unknown Verified 09/05/24 16:17
propoxyphene Allergy Unknown Verified 09/05/24 16:17
sertraline Allergy Unknown Verified 09/05/24 16:17
sumatriptan Allergy Unknown Verified 09/05/24 16:17
�Medication �Instructions �Recorded �Confirmed �Type
acetaminophen 500 mg tablet 1,000 mg PO Q6H PRN mild 05/27/24 09/05/24 History
pain/fever/headache
duloxetine 60 mg capsule,delayed 60 mg PO DAILY Neurological 05/27/24 09/05/24 History
release Condition
gabapentin 100 mg capsule 100 mg PO HS Neurological Condition 05/27/24 09/05/24 History
quetiapine 200 mg tablet 200 mg PO HS Mental Health/Anxiety 05/27/24 09/05/24 History
aspirin 81 mg chewable tablet 81 mg PO DAILY #30 tabs 05/30/24 09/05/24 Rx
atorvastatin 20 mg tablet 20 mg PO QPM #30 tabs 05/30/24 09/05/24 Rx
carvedilol 6.25 mg tablet 6.25 mg PO BID #60 tabs 05/30/24 09/05/24 Rx
dapagliflozin propanediol 10 mg 10 mg PO DAILY #30 tabs 05/30/24 09/05/24 Rx
tablet
sacubitril 24 mg-valsartan 26 mg 1 tab PO BID Heart Failure 09/05/24 09/05/24 History
tablet (Entresto)
Review of Systems
-
All other systems: Negative unless noted
Physical Exam
Vital Signs
Temp Pulse Resp BP Pulse Ox
98.3 F 74 15 107/61 96
09/07/24 07:34 09/07/24 09:09 09/07/24 07:34 09/07/24 09:09 09/07/24 07:34
Lab Results
09/06/24 04:51
09/06/24 04:51
Physical Exam
General: Well Developed and Well Nourished
HEENT: Normocephalic
Respiratory: Clear (No wheezes rales or rhonchi) and Rhonchi
Cardiac: Regular Rhythm (No murmur rub or gallop)
GI: Soft, Non Distended and Other (some bowel sounds. small slproscopic incisions clean and dry)
Musculoskeletal: No Clubbing, No Cyanosis and No Edema
Skin: Warm, Dry and Rash (None)
Neuro: Awake, Alert and Oriented
Hematologic/Lymphatic: No Lymphadenopathy
Psych: Calm
Impression / Plan
-
d/p Laparoscopic cholecystectomy with cholangiogram 09/07/24
- post op tx per gen surgery.
.
low BP
- IV fluid with close monitoring for signs of HF
- entresto on hold
- abx
- montor closely
Patient history of nonischemic cardiomyopathy ejection fraction of 40%,
- monitor for climical signs of HF
- tele
- resume meds as BP tolerates and when able to take PO
.
[id number] diabetes- tx per primary team
Essential hypertension - montior BP
Data Reviewed
-
EKG: Report Reviewed by me
Radiology: Report Reviewed by me
Ultrasound: Report Reviewed by me
Medical Tests (Nuc Med, Echo etc): Report Reviewed by me
Labs: Labs Reviewed by me
--- NOTE | 2024-09-07 11:54 | W.IMMPOSTOP ---
Surgical Immed Post Op Note
-
Primary Surgeon: Madi Eddy MD
Assisting Surgeon: None
Pre-op Diagnosis: Choledocholithiasis
Post-op Diagnosis: Choledocholithiasis, chronic cholecystitis
Procedure Performed: Laparoscopic cholecystectomy with cholangiogram
Anesthesia Type: General
Specimen / Cultures: Gallbladder and contents
Estimated Blood Loss: 11 cc
Complications: None
Operative Findings: Chronically inflamed gallbladder with thickened rind. The right hepatic artery appeared to be coursing into the cystic triangle (Renetta's hump). There were multiple small branches emanating from this directly to the
gallbladder which were isolated and ligated individually with 5 mm titanium clips. The right hepatic artery was preserved. A critical view of safety was obtained prior to a cholangiogram which demonstrated no distal filling defects but markedly
dilated bile ducts. The duct was ligated with a clip followed by a 0 PDS Endoloop.
POST OP PLAN:
Imaging: None
Labs: Routine AM
Diet: Clears for lunch, low-fat diet ordered for dinner
Analgesia: Tylenol 650mg q6 Robinson, Jaylene 5mg q6 PRN, Dilaudid 0.5mg q2h PRN
Neuro/vascular checks: q4h
AC/AP: Hold Therapeutic AC, Ok for DVT PPx
Activity: Ad Ruth
Wound/Incisions/Drains: Routine
Abx: Continue antibiotic course per GI for ascending cholangitis
Dispo: RNF, anticipate discharge home tomorrow.
--- NOTE | 2024-09-07 12:00 | OR.RPT ---
Operative Report
Operative Report
Patient Name: Meena Nye
: 1960
Date of Operation: 09/07/2024
Preoperative Diagnosis: Choledocholithiasis
Postoperative Diagnosis: Choledocholithiasis and chronic cholecystitis
Procedure(s):
Laparoscopic Cholecystectomy with Cholangiogram
Surgeon(s):
Dr. Eddy
Party Coordinator(s):
JUAN PABLO Villalobos
Anesthesia: General
Estimated Blood Loss: 11 cc
Urine Output: None
Drains/Lines/Implants: None
Specimens:
1. Gallbladder and contents
HPI/Surgical Indications:
This is a 64-year-old female who presented to our hospital with a few days of right upper quadrant abdominal pain, jaundice (in the setting of several months of postprandial right upper quadrant pain) and found to have gallstones and dilated bile
ducts on ultrasound imaging. A subsequent CT scan confirmed choledocholithiasis. She underwent an ERCP on 09/06/2024 which was successful in clearing her common bile duct. Risks/Benefits/Alternatives were discussed at length, and the patient agreed
to proceed with interval cholecystectomy this admission.
Operative Findings: Chronically inflamed gallbladder with thickened rind and edema in the cystic triangle. The right hepatic artery appeared to be coursing into the cystic triangle (Renetta's hump) and inserting high on the cystic plate. There
were multiple small branches emanating from the artery directly to the gallbladder which were isolated and ligated individually with 5 mm titanium clips. The right hepatic artery was preserved. A critical view of safety was obtained prior to a
cholangiogram which demonstrated no distal filling defects but markedly dilated bile ducts. The duct was ligated with a clip followed by a 0 PDS Endoloop.
Procedure Description:
The patient was brought to the Operating Room and placed in the supine position with one arm tucked. Following uneventful induction of general endotracheal anesthesia, an orogastric tube was placed. The abdomen was prepped and draped in the usual
sterile fashion. A timeout was performed confirming the procedure, consent, and that IV antibiotics were infused and sequential compression devices were confirmed to be on. The abdomen was entered using a left subcostal Veress technique which
required a single pass followed by a right upper quadrant 5 mm Optiview trocar. There was significant adhesions along the midline from her prior hysterectomy surgery. Pneumoperitoneum to 15 mmHg pressure was obtained without difficulty and we
confirmed that no injury had occurred during our entry. The patient was positioned in reverse Trendelenberg and rotated with the right side up slightly. Two 5mm trocars were then placed along the right subcostal margin followed by 12 mm port in the
epigastrium. We did also look back at her 5 mm Optiview port through the 12 mm port to ensure that no injury had occurred here in the OR 5 mm port was closed to the adhesions no injury to the underlying tissues was identified. A locking grasping
forceps was placed on the fundus of the gallbladder where it was then retracted cephalad and to the right. Using appropriate grasping instruments, the peritoneum overlying the triangle of Calot was incised and extended superiorly on both the
anterior and posterior gallbladder winston. The infundibulum was dissected off the cystic plate. We identified a Renetta's hump (aberrant right hepatic artery) and the cystic triangle with a posterior and anterior cystic artery as well as a small
branch extending into the gallbladder directly higher up. The right hepatic artery appeared to insert into the liver in the upper part of the lower third of the cystic plate. Once we are able to clip and ligate these branches, we were able to
better expose the cystic triangle and obtain a critical view of safety. The cystic duct was a isolated and clipped distally. A ductotomy was made and a cholangiocatheter on an Russo clamp was inserted into the cystic duct. A C-arm was draped and
brought into the field. An intra-operative cholangiogram was performed and was noted to have:
No filling defects in the biliary tree
Significant biliary dilation
Brisk flow of contrast into the duodenum
Normal biliary anatomy
The catheter was then removed and the cystic duct was controlled with a clip followed by a 0 PDS Endoloop. After ensuring both the artery and duct were divided, the gallbladder was freed from the liver using electrocautery. There was some minimal
spillage of bile from our ductotomy, but no spillage of stones. The gallbladder bed was inspected and excellent hemostasis was obtained. The gallbladder was extracted through the 12 mm trocar site using an endocatch bag. The abdomen was again
irrigated and excellent hemostasis was assured. The 12 mm trocar site was closed using 0 PDS suture. All remaining trocars were then removed and the pneumoperitoneum was evacuated. All trocar sites were closed at the skin level using 4-0 Monocryl
followed by Dermabond. Overall, the patient tolerated the procedure well and was taken to the Recovery Room postoperatively in stable condition.
I was the attending physician and performed the procedure with assistance from the MATURITY CHECKER above. I was present for all portions of the case, excluding skin closure.
Madi Eddy MD
[2024-09-07 12:25] LABS: Glucose - Point of Care 178 mg/dl (70-99)
[2024-09-07] MEDS: BENADRYL 25 MG IV (12:28)
[2024-09-07] MEDS: DILAUDID 0.25 MG IV (12:51)
--- NOTE | 2024-09-07 13:22 | SUR.PHASEI ---
patient very restless on pacu arrival, pulling off monitors and gown - but curling with blankets in position. In approx 20 minutes able to cooperate. no pain initially. vss. glucose results to Dr Manuel. no treatment. obtained benadryl
order for urticaria- no rash. jaundice. Dr Eddy and Dr Manuel visit in pacu. Treated with Dilaudid x1 with relief. ice pack to abd intermittently for comfort.
--- NOTE | 2024-09-07 13:22 | PTCARENOTE ---
pt returned from PACU at 1315 to Room 2114. pt alert, oriented to post operative plan of care. VS and assessment as documented. tolerating sips of water. denies pain. ice pack to abdomen. Telemetry reading SR in 60-70's. will observe.
--- NOTE | 2024-09-07 13:56 | W.PN.GI.CBS2 ---
Today's Communication / Plan
-
outpatient GI follow up
Assessment / Plan
-
Meena is a 64-year-old female with newly diagnosed heart failure over the summer, coming in with significant epigastric pain and jaundice found to have choledocholithiasis on imaging with fever, leukocytosis/cholangitis underwent ERCP on 09/06/[address] Mojica and apparently feeling much better with better labs and has + blood cultures.
# Cholangitis - resolved after ERCP and stone removal - +blood cultures - primary team to treat
- going for elsy today
- bili improved from 7 --> 3.6, some improvement in WBC
- on antibiotics
# Microcytic anemia -no prior workup
-- wouldn't trust the ferritin as she is infected -
-- Will need eventual outpatient colonoscopy - we will get her an outpatient appt
-- Patient does have chronic reflux that is untreated. She is under the assumption her PPI would interfere with her medications
-- Just to be safe, I did do an interaction aircraft shipping checker and there are no interactions between pantoprazole and her medications
#CHF - EF 40% on Entreso and Farixga
-- GI will sign off, please call with questions and we have her set up outpatient for follow up
Subjective
Subjective
Date of Service: September 07, 2024
Patient operating room for cholecystectomy
Objective
Data Reviewed
Laboratory Data:
Laboratory Results
09/06/24 04:51
09/06/24 04:51
Laboratory Results
PT 13.5 Sec (11.4-14.6) 09/05/24 19:20
INR 1.05 09/05/24 19:20
Total Bilirubin 3.6 mg/dl (0.2-1.3) H 09/07/24 05:01
AST 101 U/L (14-36) H 09/07/24 05:01
ALT 305 U/L (0-35) H 09/07/24 05:01
Alkaline Phosphatase 797 U/L (38-126) H 09/07/24 05:01
Vital Signs and I&O:
Vital Signs
Temp Pulse Resp BP Pulse Ox
97.6 F 71 16 115/63 98
09/07/24 13:15 09/07/24 13:15 09/07/24 13:15 09/07/24 13:15 09/07/24 13:15
I&O
09/06/24 09/07/24 09/08/24
06:59 06:59 06:59
Intake Total 760 / 760 2340 / 2340 100 / 100
Output Total 1000 / 1000
Balance 760 / 760 1340 / 1340 100 / 100
[2024-09-07 16:13] LABS: % Basophils 0.2 % (0-2); % Immature Granulocytes 0.8 % (0-0.5); % Lymphocytes 6.2 % (20.5-51.1); % Neutrophils 90.8 % (42.2-75.2); Absolute Immature Granulocytes 0.2 10^3/uL (0-0.05); Absolute Lymphocytes 1.3 10^3/uL (1.2-3.4); Absolute Monocytes 0.4 10^3/uL (0.1-0.6); Absolute Neutrophils 19.5 10^3/uL (1.4-6.5); Hematocrit 28.4 % (37.0-47.0); Hemoglobin 9.7 g/dL (12.0-16.0); Mean Corp Hgb Conc. 34.2 g/dL (33.0-37.0); Mean Corpuscular Volume 79.1 fL (81.0-99.0); Mean Platelet Volume 9.6 fL (7.4-10.4); Nucleated Red Blood Cells % 0 %; Platelet Count 322 10^3/uL (130-400); Red Blood Cell Count 3.59 10^6/uL (4.20-5.40); White Blood Cell Count 21.5 10^3/uL (4.8-10.8)
[2024-09-07] MEDS: NSS 250 IV (16:16)
[2024-09-07 16:25] LABS: Albumin 3.2 g/dl (3.5-5.0); Blood Urea Nitrogen 17 mg/dl (7-17); Calcium 8.6 mg/dl (8.4-10.2); Carbon Dioxide 17 mmol/L (22-30); Chloride 102 mmol/L (98-107); Estimated Creatinine Clearance 61 ml/min; Glucose 297 mg/dl (70-99); Phosphorus 3.8 mg/dl (2.5-4.5); Potassium 4.6 mmol/L (3.5-5.1); Sodium 132 mmol/L (135-145); eGFR > 60.00
[2024-09-07 16:38] LABS: Anisocytosis Slight; Macrocytosis 1+; Normal RBC Morphology No
[2024-09-07 16:39] LABS: Stomatocytes 1+; Target Cells 2+
[2024-09-07 16:40] LABS: Microcytosis Slight
[2024-09-07] MEDS: NSS 500 IV (17:21)
[2024-09-07 17:33] LABS: Glucose - Point of Care 279 mg/dl (70-99)
[2024-09-07] MEDS: LOVENOX 40 MG SC (20:53)
[2024-09-07] MEDS: COREG PO (20:54)
[2024-09-07] MEDS: NEURONTIN 100 MG PO (20:55)
[2024-09-07] MEDS: SEROQUEL 200 MG PO (20:55)
[2024-09-07 21:37] LABS: Glucose - Point of Care 255 mg/dl (70-99)
[2024-09-07] MEDS: DILAUDID 0.5 MG IV (21:53)
--- NOTE | 2024-09-07 23:04 | PTCARENOTE ---
Patient arrived on unit, in stretcher, transfer from [address] [place] [address]. Patient is Ox3, HR reg, lungs CTA, BS x 4, surgical incisions intact-approximated w/surgical glue. Pain is controlled at this time. NSS fluids infusing through left forearm PIV.
Medications given as per MAR. Plan of care discussed, questions answered, patient verbalized understanding. Patient resting in bed, call robles in reach.
[2024-09-08] VITALS (16 sets, daily range): BP systolic 73–140; BP diastolic 52–97; PULSE 72–98; BMI 29.7
[2024-09-08] MEDS: BENADRYL 25 MG IV (00:09)
[2024-09-08] MEDS: ZOSYN 50 IV ×2 (02:55→08:34)
[2024-09-08 06:27] LABS: Hematocrit 27.4 % (37.0-47.0); Hemoglobin 9.4 g/dL (12.0-16.0); Mean Corp Hgb Conc. 34.3 g/dL (33.0-37.0); Mean Corpuscular Hgb 27.1 pg (27.0-31.0); Mean Platelet Volume 9.8 fL (7.4-10.4); Platelet Count 354 10^3/uL (130-400); Red Blood Cell Count 3.47 10^6/uL (4.20-5.40); White Blood Cell Count 19.7 10^3/uL (4.8-10.8)
[2024-09-08 06:49] LABS: ALT (SGPT) 222 U/L (0-35); AST (SGOT) 57 U/L (14-36); Alkaline Phosphatase 571 U/L (38-126); Blood Urea Nitrogen 18 mg/dl (7-17); Calcium 8.6 mg/dl (8.4-10.2); Carbon Dioxide 21 mmol/L (22-30); Chloride 105 mmol/L (98-107); Estimated Creatinine Clearance 70 ml/min; Glucose 163 mg/dl (70-99); Potassium 4.8 mmol/L (3.5-5.1); Sodium 135 mmol/L (135-145); Total Bilirubin 1.9 mg/dl (0.2-1.3); Total Protein 5.8 g/dl (6.3-8.2); eGFR > 60.00
--- NOTE | 2024-09-08 08:26 | W.PN.GS2 ---
Today's Communication / Plan
-
Continue trending labs while admitted. LFTs downtrending, H/H stable. GI planning outpatient scope.
Microcytic anemia, okay for iron transfusion/supplementation
Continue antibiotics d2/7 (okay to transition to oral per primary)
HLIVFs, okay to diurese per primary/cards.
Appreciate cards following along and recommendations
Unrestricted diet
Dispo planning, okay to DC home from surgical perspective.
General surgical continue following peripherally.
Assessment / Plan
-
This is a 64-year-old female who presented to our hospital on 09/05/2024 with ascending cholangitis and underwent a successful ERCP on 09/06/2024. Postoperative day #1 from a laparoscopic cholecystectomy and cholangiogram.
Some mild hypotension postoperatively prompting admission to the IMU for possible inotropic medication given her heart failure however did not require any adjuncts overnight.
Continue trending labs while admitted. LFTs downtrending, H/H stable. GI planning outpatient scope.
Microcytic anemia, okay for iron transfusion/supplementation
Continue antibiotics d2/7 (okay to transition to oral per primary)
HLIVFs, okay to diurese per primary/cards.
Appreciate cards following along and recommendations
Unrestricted diet
Dispo planning, okay to DC home from surgical perspective.
General surgical continue following peripherally.
Time Spent
Total Time Spent with Patient (in minutes): 20
Subjective Data
-
Date of Service: September 08, 2024
Interval Events:
No acute events overnight. Slept well. Pain Controlled. Denies Nausea/Vomiting, +bowel function. Tolerating diet.
Objective Data
-
Intake and Output
09/07/24 09/08/24 09/09/24
06:59 06:59 06:59
Intake Total 2340 / 2340 1620 / 1620
Output Total 1000 / 1000
Balance 1340 / 1340 1620 / 1620
Intake:
Oral fluids 480 / 480 1320 / 1320
IV fluids (Total) 1760 / 1760 100 / 100
normosol 100 / 100
IV piggybacks 100 / 100 200 / 200
Output:
Urine, Garcia 1000 / 1000
Other:
Number of approximated SMALL 1
amounts of urine
Number of approximated MODERATE 1
amounts of urine
Vital Signs
Temp Pulse Resp BP Pulse Ox
97.8 F 73 18 109/69 95
09/08/24 04:12 09/08/24 06:03 09/08/24 06:03 09/08/24 06:03 09/08/24 06:03
Lab Results
09/08/24 06:01
09/08/24 06:01
Calcium 8.6 mg/dl (8.4-10.2) 09/08/24 06:01
Phosphorus 3.8 mg/dl (2.5-4.5) 09/07/24 15:59
Total Bilirubin 1.9 mg/dl (0.2-1.3) H D 09/08/24 06:01
Direct Bilirubin 2.3 mg/dl (0.0-0.4) H 09/07/24 05:01
AST 57 U/L (14-36) H 09/08/24 06:01
ALT 222 U/L (0-35) H 09/08/24 06:01
Alkaline Phosphatase 571 U/L (38-126) H 09/08/24 06:01
Total Protein 5.8 g/dl (6.3-8.2) L 09/08/24 06:01
Albumin 3.0 g/dl (3.5-5.0) L 09/08/24 06:01
Physical Exam
-
GENERAL/NEURO: Awake, Alert, no distress, mild residual jaundice
CHEST: Unlabored breathing on RA
ABDOMEN: Soft, Non-Tender, Non-Distended, incisions clean dry and intact.
[2024-09-08 08:31] LABS: Glucose - Point of Care 151 mg/dl (70-99)
[2024-09-08] MEDS: PROTONIX IV 40 MG IV (08:34)
[2024-09-08] MEDS: NSS (PRESERVATIVE FREE) 10 ML IV (08:34)
[2024-09-08] MEDS: COREG 6.25 MG PO ×2 (08:34→20:41)
[2024-09-08] MEDS: CYMBALTA DELAYED RELEASE 60 MG PO (08:34)
[2024-09-08] MEDS: MOTRIN 400 MG PO (08:36)
[2024-09-08] MEDS: NOVOLOG FLEXPEN-LOW RESISTANCE SC ×2 (08:48→17:33)
--- NOTE | 2024-09-08 09:18 | CON.ID ---
Addendum entered and electronically signed by Jessica Ott MD 09/08/24 16:51:
I personally performed a history and physical exam of the patient and discussed management with the resident. I reviewed the resident's note and agree with the documented findings and plan of care HPI/CC with the following additions/corrections:
64 year old female with history of biliary colic presenting for RUQ abdominal pain and jaundice found to have choledocolithiasis s/p ERCP with stone removal and then cholecystectomy. Single blood culture from arrival with strep species - suspect
VGS which could be a contaminant however more likely from the GI tract (cholangitis), would like to see 09/07 blood cultures followed another day and if still negative tomorrow then can transition to oral augmentin to finish a 10 day total course
09/05-09/14. For now, switched zosyn to unasyn as patient not known to be colonized with ESBLs. If / blood cultures persistently positive then would need to assess for uncontrolled source (repeat CT abdomen/pelvis for developing abscess) and TTE
for endocarditis.
Physical Exam
Constitutional: Comfortable
Cardiovascular: Regular Rate and S1/S2
Pulmonary: Clear to ascultation; Negative Wheezes, Rales or Rhonchi
Gastrointestinal: Soft, Non Tender, Non Distended, Normal Bowel Sounds and surgical sites x5 - clean, no erythema or dehiscence
Skin: Warm, mild Jaundice
AW
Original Note:
Consultation
-
Date/Time Consultation Requested: 09/07/2024, 18:35 PM
Date/Time Consultation Performed: 09/08/2024, 9:19 AM
Requesting Provider: Fabrice Frye MD
Performing Provider: Christin Layne MD for Jayla Ott MD
Reason for Consultation: ascending cholangitis
Chief Complaint / Past History
Chief Complaint
Intermittent right upper quadrant abdominal pain with jaundice X several months.
History of Present Illness
64-year-old female with a past medical history significant for heart failure with reduced ejection fraction, currently on Entresto and Farxiga presented to the hospital emergency room with intermittent epigastric pain that radiates into her back she
could not remember exact onset but it is states she had it for several months. She recalls her pain getting worse with food and denies having any associated nausea or vomiting. Just before the day of admission on 09/05/2024 her symptoms worsened
and she states that she turned completely yellow. This prompted an ER visit.
Upon arrival to the ER, she was febrile with temperature-101.2 �F, leukocytosis with left mjxmv-UVR-08R-Peaked at 21.5 and currently at 19.7 (09/08). Microcytic anemia,-Hb-11.7, downtrending,-9.4 (09/08) MCV-78.2 remained stable., reactive
thrombocytosis-platelet count 367 improving, 354-09/08 jrqvtveckuga-rkwskdfoo-2.5 resolved as of today, elevated total bilirubin-6.6-1.9, direct bilirubin at 5.7, elevated transaminases (AST 241, ALT 579, ALP-908), CRP elevated-159.50. Her HbA1c was
at 7.1. Imaging-abdominal ultrasound revealed cholelithiasis with mild gallbladder wall thickening and then she proceeded to get an abdominal pelvis and CAT scan that showed choledocholithiasis with biliary obstruction, and fracture of the
posterior superior endplate of L5 vertebrae. Patient received ERCP on 09/07/24 without complications. Later on the same day, she underwent cholecystectomy - 09/07/2024. Patient also received with 2 drops of blood culture at the same time, blood
cultures pending. The admission and out to be positive for Streptococcus species. Patient was diagnosed with acute choledocholithiasis and patient underwent cholecystectomy and ERCP on 09/07/2024. Upon admission patient started receiving Zosyn
3.375 g Q6 hourly-day 4 today.
Past History
Past Medical History: Other (Hypertension, chronic HFrEF, type II DM, anxiety, GERD/hiatal hernia, migraines, endometriosis.)
Past Surgical History: Other (Total abdominal hysterectomy.)
Additional Past Surgical History:
Cholecystectomy on 09/07/2024-postop day 1 today.
Allergy History:
Estrogens Allergy (Verified 09/05/24 16:17)
Hives
methyltestosterone Allergy (Verified 09/05/24 16:17)
Hives
metoprolol Allergy (Verified 09/05/24 16:17)
Unknown
propoxyphene Allergy (Verified 09/05/24 16:17)
Unknown
sertraline Allergy (Verified 09/05/24 16:17)
Unknown
sumatriptan Allergy (Verified 09/05/24 16:17)
Unknown
Medications Reviewed: Yes
Current Antibiotics:
Zosyn-3.375 mcg-every 6 hourly-day 4.
Social History
Tobacco: Former Smoker (Quit smoking in 1981, half to 1 pack a day when she was smoking.)
Alcohol: Occasional
Drug: None
Personal:
Living: With Family
Employment: Retired
Family History
Family History: Not Pertinent
Review of Systems
Review of Systems
General: Negative Fever, Chills or Change in Appetite
HEENT: Negative Headache
Cardiovascular: Negative Chest Pain, Dyspnea or Palpitations
Respiratory: Negative Cough
Gasteroenterology: Other (abdominal pain improving. Has some bloating.); Negative Nausea or Vomiting
Endocrine: Negative Weight Change or Fatigue
Skin / Hair / Nails: Other (jaundiced); Negative Rash or Pruritis
Vital Signs
Temp Pulse Resp BP Pulse Ox
98.5 F 78 18 118/69 95
09/08/24 07:54 09/08/24 08:34 09/08/24 06:03 09/08/24 08:34 09/08/24 06:03
Physical Exam
Physical Exam
Constitutional: Comfortable
Cardiovascular: Regular Rate and S1/S2; Negative Murmur, Rub or Gallop
Pulmonary: Clear; Negative Wheezes, Rales or Rhonchi
Gastrointestinal: Soft, Non Tender, Non Distended, Normal Bowel Sounds and Other (surgical site - clean, dressing intact, no erythema or discharge.)
Genito-Urinary: Negative Garcia
Extremities: Edema (minimal pitting edema.)
Skin: Warm and Jaundice
Lab / Diagnostic Study Results
09/08/24 06:01
09/08/24 06:01
Abs Immat Gran (auto) 0.2 10^3/uL (0-0.05) H 09/07/24 15:59
Absolute Neuts (auto) 19.5 10^3/uL (1.4-6.5) H 09/07/24 15:59
Absolute Lymphs (auto) 1.3 10^3/uL (1.2-3.4) 09/07/24 15:59
Absolute Monos (auto) 0.4 10^3/uL (0.1-0.6) 09/07/24 15:59
Absolute Basos (auto) 0.0 10^3/uL (0-0.2) 09/07/24 15:59
Immature Gran % 0.8 % (0-0.5) H 09/07/24 15:59
Neutrophils % 90.8 % (42.2-75.2) H 09/07/24 15:59
Lymphocytes % 6.2 % (20.5-51.1) L 09/07/24 15:59
Monocytes % 2.0 % (1.7-9.3) 09/07/24 15:59
Eosinophils % 0.0 % (0-6) 09/07/24 15:59
Basophils % 0.2 % (0-2) 09/07/24 15:59
ESR 65 mm/hour (0-20) H 09/05/24 19:20
PT 13.5 Sec (11.4-14.6) 09/05/24 19:20
INR 1.05 09/05/24 19:20
Lactic Acid Cancelled 10/05/24 22:00
C-Reactive Protein 159.50 mg/L (0.0-10.00) H 09/05/24 19:20
Microbiology Results
Micro:
09/05/24 19:51 Blood Culture - Preliminary
Blood/Venous Streptococcus species
Additional testing on request
Gram Stain - Preliminary
09/07/24 21:46 Blood Culture - Pending
Blood/Venous
09/07/24 21:46 Blood Culture - Pending
Blood/Venous
Assessment / Plan
Assessment-
Subjective-
Objective-vital signs-afebrile, vital signs stable. eukocytosis with left zbryw-MQB-10P-Peaked at 21.5 and currently at 19.7 (09/08). Microcytic anemia,-Hb-11.7, downtrending,-9.4 (09/08) MCV-78.2 remained stable., reactive thrombocytosis-platelet
count 367 improving, 354-09/08 dlnqtquecyjv-geuosowym-7.5 resolved as of today, elevated total bilirubin-6.6-1.9, direct bilirubin at 5.7, elevated transaminases (AST 241, ALT 579, ALP-908), single episode of hyponatremia-serum sodium-132, resolved.
CRP-159.50, ESR-65. Lactic acid levels-1.0. S/p cholecystectomy.
Postop day 1. Single blood culture drawn on 09/05/2024-Streptococcus species. Repeat blood cultures drawn on 09/07/2024-pending.
Currently on Zosyn day 4.
Plan-
Blood cultures x 2 drawn on 09/07/2024-at the same time-pending.
Total bilirubin improving.
stop zosyn.
Start Unasyn 3gm Q6hrly.
ID will continue to monitor. If patient is responding to uasyn, will switch her to Augmentin for 10 days.
--- NOTE | 2024-09-08 09:22 | PTCARENOTE ---
Patient AAOx3. Pain well controlled with motrin. NSR on monitor. VSS. Abdomen tender on palpation near lap sites, lap sites CDI, glue intact. Patient hoping for DC today. Will closely monitor.
--- NOTE | 2024-09-08 09:58 | W.PN.CD ---
Today's Communication / Plan
-
BP improved
tolerating Coreg. If BP remains stable then can consider restart Entresto tomorrow
durationof abx per primary team
post op care per gen surgery
Impression / Plan
-
d/p Laparoscopic cholecystectomy with cholangiogram 09/07/24
- post op tx per gen surgery.
- abx per primarty team and surgery
.
low BP- improved
- coreg has been continued. Monitor BP
- entresto can be rsumed if BP remains stable on Coreg
- abx per primary team
- montor closely
Patient history of nonischemic cardiomyopathy ejection fraction of 40%,
-stable.
- tele
- resume meds as BP tolerates
.
Qtw-ogjzgoh-tvzutawer diabetes- tx per primary team
Essential hypertension - montior BP
Physical Exam
Vital Signs/Labs
Vital Signs
Temp Pulse Resp BP Pulse Ox
98.5 F 72 25 118/69 95
09/08/24 07:54 09/08/24 09:00 09/08/24 09:00 09/08/24 08:34 09/08/24 09:00
09/07/24 09/08/24 09/09/24
06:59 06:59 06:59
Actual Weight 78.3 kg
09/08/24 06:01
09/08/24 06:01
PT 13.5 Sec (11.4-14.6) 09/05/24 19:20
INR 1.05 09/05/24 19:20
Physical Exam
Constitutional: No acute distress
Cardiovascular: Rhythm & rate is regular
Respiratory: Respiratory effort normal
GI: Soft, Normal bowel sounds and Other (post op abd soft and patietn without alot of discomfort with palp. )
Neuro/Psych: Alert and Oriented
Data Reviewed
-
Date of Service: September 08, 2024
Medical Decision Making: Reviewed Test Results
Medical Tests (PFT, Pathology etc): Report Reviewed by me
Labs: Labs Reviewed by me
[2024-09-08] MEDS: GLUCOPHAGE 500 MG PO ×2 (11:41→17:39)
[2024-09-08] MEDS: NOVOLOG FLEXPEN-LOW RESISTANCE 3 UNITS SC (12:18)
[2024-09-08 12:26] LABS: Glucose - Point of Care 251 mg/dl (70-99)
--- NOTE | 2024-09-08 13:24 | PN.DE.MGMTRT ---
Insulin Management
- -
09/08/2024 Diabetes Management Consult
Patient admitted 09/05 with weakness, RUQ pain, jaundice. PMH HTN, cardiomyopathy, chf, diabetes. Prior to admission was taking Farxiga 10 mg daily. A1C 7.1%, cr .8, eGFR > 60.
Glucose since admission 123 to 279. Patient has refused corrective insulin.
Patient is awake alert and oriented sitting in bed. Receptive to discussion regarding diabetes. States she was only diagnosed about 3 months ago. Discussed the importance of good glucose control for optimal healing, she is receptive to take
corrective insulin if needed.
Discussed the action of metformin, she is agreeable to start, 500 mg BID.
Provided and instructed on use of Contour Next meter with good return demonstration. Provided diabetes education booklet and highlighted times to test and target ranges.
Will follow.
Diabetes History
- -
Type of Diabetes: 2
Pre-Admission Diabetes Regimen
09/07/24 09/08/24
15:59 06:01
Creatinine 0.9 0.8
Lab Results
Hemoglobin A1c 7.1 % (4.0-5.6) H 09/06/24 04:51
Insulin Pump Settings
IP Diabetes Regimen
09/07/24 09/07/24 09/07/24
15:59 17:32 21:25
Glucose 297 H
POC Glucose 279 H 255 H
09/08/24 09/08/24 09/08/24
06:01 08:20 12:15
Glucose 163 H
POC Glucose 151 H 251 H
Patient Education
--- NOTE | 2024-09-08 13:44 | PN.CDI ---
CDI
- -
CDI:
Physician Documentation Request
Admit Date: 09/05/24 20:36
Dear Doctor Melva,
Please review the following and provide your response in the progress notes.
Clinical Indicators:
Pt admitted with ascending cholangitis with acute cholecystitis.
09/07 progress notes: 'Positive blood cultures with streptococcus species.'
Selected Entries
09/05/24
19:27
Temp 101.3 F H
Laboratory Tests
09/05/24 09/06/24
16:31 04:51
WBC 18.8 H 16.4 H
Please clarify which of the following most accurately describes the status of the patient's infection:
Sepsis
- Systemic manifestations of infection, with 2 or more SIRS criteria which include:
- Fever >100.4 degrees F or hypothermia < 96.8 degrees F
- Leukocytosis - WBC > 12,000 or leukopenia - WBC < 4,000 or > 10% bands
- Tachycardia > 90 beats per minute
- Tachypnea - RR > 20 breaths per minute or PaCO2 , 32mmHg
Source: Merck Manual 2012
- Indicate the known or suspected organism
- Indicate the known or suspected underlying infection, such as UTI, pneumonia or cellulitis
- Indicate if a suspected bacterial infection of unknown source
- Indicate if associated with an implanted device such as a F/C, PICC line, orthopedic hardware, etc.
Localized Infection Only, Without Systemic Illness
Bacteremia
- Abnormal lab finding only, does not indicate systemic illness
Other
Use of terms such as suspected, likely, concern for, or probable (associated with a specific diagnosis that is being evaluated, monitored, or treated as if it exists) are acceptable and can be coded in the inpatient setting, when documented at the
time of discharge.
Thank you,
Minnie Jenkins RN, BSN
CDI Specialist
Available via [place] Text
Please use your independent medical judgment in providing your response.
[2024-09-08] MEDS: UNASYN IV ×2 (14:43→20:40)
[2024-09-08] MEDS: MOTRIN 600 MG PO ×2 (15:40→22:12)
--- NOTE | 2024-09-08 16:35 | W.PN.HOSP.TC ---
Today's Communication/Plan
-
Blood pressure improved
Continue Unasyn, appreciate ID
Follow repeat blood cultures
Assessment / Plan
Assessment / Plan
Physical Exam
General: Not in acute distress
HEENT: Moist mucous membranes
Respiratory: Clear
Cardiac: S1/S2 and Regular Rhythm
GI: Soft, Non Distended, Normal Bowel Sounds. Mild tenderness.
Musculoskeletal: No Cyanosis and No Edema
Neuro: AO x 3
Assessment/Plan
Patient is a 64 y/o female with past medical history significant for hypertenion and CHF who presents to ED complaining of RUQ pain and jaundice.
Ascending Cholangitis obstructing choledocholithiasis
Cholelithiasis with chronic cholecystitis status post laparoscopic cholecystectomy with cholangiogram on 09/07/24
status post ERCP 09/06. Follow LFTs
Positive blood cultures with streptococcus species
-Continue with antibiotics with Unasyn (Zosyn stopped). Appreciate ID.
-Repeat blood cultures pending given strep growth on initial blood culture
-Consulted ID, appreciate evaluation and recommendations
-Low fat diet
-Outpatient GI follow-up for colonoscopy
Hypotension -- on 09/07/24 -- post-op -- RESOLVED
-Systolic Blood Pressure in the low 80s post-op on 09/07/24
-IV fluids bolus (with improvement in SBP) and continuous started by cardiology, appreciate cardiology
-Continue IV fluids 100 ML�s per hour as ordered by cardiology
-Entresto on hold
-Per Dr. Leonard although patient has a history of heart failure, we of course need to address her hypotension and depletion in the setting of recent surgery as well as infection and she requires lots of volume to keep blood pressure up
Benign Hypertension
- Has been hypotensively more recently on diuretics (see below).
- Continue carvedilol with holding parameters.
- Adjust regimen as needed.
Chronic HFrEF - history of nonischemic cardiomyopathy ejection fraction of 40%
- Stable. Compensated.
- Suspect degree of volume depletion after months of diuretic therapy.
- Hold Lasix and Entresto acutely -- can consider Entresto restart tomorrow
DM-II
- Patient had prior A1C that was 7.7%.
- Follow glucose and cover with SSI as needed.
- Update A1C.
- Consulted Diabetes COTTON HEADER, appreciate evaluation and recommendations
- Start Metformin
DVT Prophylaxis: SCDs. Lovenox.
Code Status: Full
Anticipated Discharge: 24 - 48 hours
Subjective/Interval History
-
Date of Service: September 08, 2024
Patient was seen and examined. She denied any symptoms or complaints.
Objective Data
-
Labs:
Laboratory Results
09/08/24
06:01
WBC 19.7 H
Hgb 9.4 L
Hct 27.4 L
Plt Count 354
Sodium 135
Potassium 4.8
Chloride 105
Carbon Dioxide 21 L
BUN 18 H
Creatinine 0.8
Glucose 163 H
Calcium 8.6
Total Bilirubin 1.9 H D
AST 57 H
ALT 222 H
Alkaline Phosphatase 571 H
Vital Signs:
Vital Signs
Temp Pulse Resp BP Pulse Ox
98.2 F 74 16 113/61 96
09/08/24 15:30 09/08/24 16:00 09/08/24 15:53 09/08/24 15:53 09/08/24 15:51
I&O
09/07/24 09/08/24 09/09/24
06:59 06:59 06:59
Intake Total 2340 / 2340 1620 / 1620
Output Total 1000 / 1000
Balance 1340 / 1340 1620 / 1620
--- NOTE | 2024-09-08 16:47 | PTCARENOTE ---
1631: Patient arrived to 2S. Full head to toe assessment completed. Orthostatic VS completed by Yulia IMU nurse. IMU nurse relayed orthostatic VS results to Dr. Frye. Per Dr. Frye keep patient on high fall risk precautions. Lap sites on
abdomen clean dry and intact with surgical glue. Patient on RA with SpO2 greater than 92%. Call robles within reach and bed in lowest position.
[2024-09-08 17:31] LABS: Glucose - Point of Care 114 mg/dl (70-99)
[2024-09-08] MEDS: LOVENOX 40 MG SC (17:40)
[2024-09-08] MEDS: NEURONTIN 100 MG PO (21:00)
[2024-09-08] MEDS: SEROQUEL 200 MG PO (21:01)
[2024-09-08 21:25] LABS: Glucose - Point of Care 167 mg/dl (70-99)
[2024-09-09] MEDS: UNASYN IV ×3 (03:00→13:24)
[2024-09-09 03:15] VITALS: BP 106/55
[2024-09-09 04:03] VITALS: BP 106/55
[2024-09-09 06:00] VITALS: BMI 28.5
[2024-09-09 06:26] LABS: % Basophils 0.5 % (0-2); % Eosinophils 5.3 % (0-6); % Immature Granulocytes 0.8 % (0-0.5); % Lymphocytes 30.8 % (20.5-51.1); % Monocytes 7.9 % (1.7-9.3); % Neutrophils 54.7 % (42.2-75.2); Absolute Basophils 0.1 10^3/uL (0-0.2); Absolute Eosinophils 0.8 10^3/uL (0-0.7); Absolute Immature Granulocytes 0.1 10^3/uL (0-0.05); Absolute Lymphocytes 4.7 10^3/uL (1.2-3.4); Absolute Monocytes 1.2 10^3/uL (0.1-0.6); Absolute Neutrophils 8.4 10^3/uL (1.4-6.5); Hematocrit 28.1 % (37.0-47.0); Hemoglobin 9.6 g/dL (12.0-16.0); Mean Corp Hgb Conc. 34.2 g/dL (33.0-37.0); Mean Corpuscular Hgb 28.1 pg (27.0-31.0); Mean Corpuscular Volume 82.2 fL (81.0-99.0); Mean Platelet Volume 9.6 fL (7.4-10.4); Nucleated Red Blood Cells % 0 %; Platelet Count 371 10^3/uL (130-400); Red Blood Cell Count 3.42 10^6/uL (4.20-5.40); White Blood Cell Count 15.3 10^3/uL (4.8-10.8)
[2024-09-09 06:54] LABS: ALT (SGPT) 166 U/L (0-35); AST (SGOT) 40 U/L (14-36); Alkaline Phosphatase 464 U/L (38-126); Blood Urea Nitrogen 17 mg/dl (7-17); Calcium 8.4 mg/dl (8.4-10.2); Carbon Dioxide 22 mmol/L (22-30); Chloride 108 mmol/L (98-107); Estimated Creatinine Clearance 69 ml/min; Glucose 99 mg/dl (70-99); Magnesium 2.1 mg/dl (1.6-2.3); Potassium 4.3 mmol/L (3.5-5.1); Sodium 142 mmol/L (135-145); Total Bilirubin 1.4 mg/dl (0.2-1.3); Total Protein 5.7 g/dl (6.3-8.2); eGFR > 60.00
[2024-09-09 07:36] VITALS: BP 114/57
[2024-09-09 07:58] LABS: Glucose - Point of Care 108 mg/dl (70-99)
[2024-09-09] MEDS: NOVOLOG FLEXPEN-LOW RESISTANCE SC ×3 (08:02→17:00)
[2024-09-09] MEDS: GLUCOPHAGE 500 MG PO ×2 (08:06→17:03)
[2024-09-09] MEDS: CYMBALTA DELAYED RELEASE 60 MG PO (08:06)
[2024-09-09] MEDS: COREG 6.25 MG PO (08:06)
[2024-09-09] MEDS: PROTONIX 40 MG PO (08:06)
[2024-09-09] MEDS: TYLENOL 650 MG PO ×2 (08:09→15:53)
--- NOTE | 2024-09-09 09:07 | PN.DE.MGMTRT ---
Insulin Management
- -
09/09/2024 Diabetes Management Consult Follow up
Patient admitted 09/05 with weakness, RUQ pain, jaundice. PMH HTN, cardiomyopathy, chf, diabetes. Prior to admission was taking Farxiga 10 mg daily. A1C 7.1%, cr .8, eGFR > 60.
Glucose since admission 123 to 279. Patient initially refused corrective insulin but after discussion did accept corrective insulin when required.
Patient is awake alert and oriented sitting in bed. Receptive to discussion regarding diabetes. States she was only diagnosed about 3 months ago. Discussed the importance of good glucose control for optimal healing.
Discussed the action of metformin, she is agreeable to start, 500 mg BID.
09/08 Glucose improved after one dose of corrective insulin and metformin 500 mg started, range 114 to 167.
09/09 Fasting glucose 108 this AM. Will make no change to current regimen Farxiga 10 mg daily and metformin 500 mg BID.
Provided and instructed on use of Contour Next meter with good return demonstration. Provided diabetes education booklet and highlighted times to test and target ranges.
Will follow.
Diabetes History
- -
Type of Diabetes: 2
Pre-Admission Diabetes Regimen
09/09/24
04:28
Creatinine 0.8
Lab Results
Hemoglobin A1c 7.1 % (4.0-5.6) H 09/06/24 04:51
Insulin Pump Settings
IP Diabetes Regimen
09/08/24 09/08/24 09/08/24
12:15 17:29 21:24
Glucose
POC Glucose 251 H 114 H 167 H
09/09/24 09/09/24
04:28 07:57
Glucose 99
POC Glucose 108 H
Patient Education
[2024-09-09 11:06] VITALS: BP 100/61; BP 70/46; BP 97/59; PULSE 73; PULSE 76; PULSE 84
--- NOTE | 2024-09-09 11:17 | W.PN.HOSP.TC ---
Addendum entered and electronically signed by Fabrice Frye MD 09/09/24 15:28:
Concern for Sepsis
Original Note:
Today's Communication/Plan
-
Discharge today
Assessment / Plan
Assessment / Plan
Physical Exam
General: Not in acute distress
HEENT: Moist mucous membranes
Respiratory: Clear
Cardiac: S1/S2 and Regular Rhythm
GI: Soft, Non Distended, Normal Bowel Sounds. Mild tenderness.
Musculoskeletal: No Cyanosis and No Edema
Neuro: AO x 3
Assessment/Plan
Patient is a 64 y/o female with past medical history significant for hypertenion and CHF who presents to ED complaining of RUQ pain and jaundice.
Ascending Cholangitis obstructing choledocholithiasis
Cholelithiasis with chronic cholecystitis status post laparoscopic cholecystectomy with cholangiogram on 09/07/24
status post ERCP 09/06. Follow LFTs
Positive blood cultures with streptococcus species
-Continue with antibiotics with Unasyn (Zosyn stopped). Appreciate ID.
-Repeat blood cultures with no growth so far (repeat blood cultures were ordered given strep growth on initial blood culture)
-Consulted ID, appreciate evaluation and recommendations
-On discharge: oral Augmentin to finish a 10 day total course 09/05-09/14
-Low fat diet
-Outpatient GI follow-up for colonoscopy
Hypotension -- on 09/07/24 -- post-op -- RESOLVED
Orthostatic Hypotension
-Systolic Blood Pressure in the low 80s post-op on 09/07/24
-IV fluids bolus (with improvement in SBP) and continuous started by cardiology, appreciate cardiology
-Continue IV fluids 100 ML�s per hour as ordered by cardiology
-Entresto on hold
-Asked Dr. Condon on 09/09/24: [facility] cardiology has been seeing this patient, she has asymptomatic orthostatic hypotension: 106/61 HR 73 supine, 97/59 HR 76 sitting, 70/46 HR 84 standing: reduce Coreg, hold Entresto, compression socks, follow-up
outpatient
Microcytic Anemia
-Recheck CBC outpatient
Benign Hypertension
- Has been hypotensively more recently on diuretics (see below).
- Continue carvedilol with holding parameters.
- Adjust regimen as needed.
Chronic HFrEF - history of nonischemic cardiomyopathy ejection fraction of 40%
- Stable. Compensated.
- Suspect degree of volume depletion after months of diuretic therapy.
- Hold Lasix and Entresto, consider resuming at outpatient follow-up
DM-II
- Patient had prior A1C that was 7.7%.
- Follow glucose and cover with SSI as needed.
- Update A1C.
- Consulted Diabetes FEDERAL JUDGE, appreciate evaluation and recommendations
- Start Metformin. Continue Farxiga outpatient. Patient is eating and drinking normally.
- Follow-up with PCP this week.
DVT Prophylaxis: SCDs. Lovenox.
Code Status: Full
More than 30 minutes spent in discharge including
Final examination of the patient
Summarizing hospital stay
Instructions for continuing care to all relevant caregivers
Preparation of discharge records, prescriptions, and referral forms
Total time spent (in minutes): 37
Anticipated Discharge: Today
Subjective/Interval History
-
Date of Service: September 09, 2024
Patient was seen and examined. She denied any symptoms or dizziness, she would like to go home today, she is eating and drinking fine.
Objective Data
-
Labs:
Laboratory Results
09/09/24
04:28
WBC 15.3 H
Hgb 9.6 L
Hct 28.1 L
Plt Count 371
Sodium 142
Potassium 4.3
Chloride 108 H
Carbon Dioxide 22
BUN 17
Creatinine 0.8
Glucose 99
Calcium 8.4
Total Bilirubin 1.4 H
AST 40 H
ALT 166 H
Alkaline Phosphatase 464 H
Vital Signs:
Vital Signs
Temp Pulse Resp BP Pulse Ox
98 F 67 18 114/57 96
09/09/24 11:06 09/09/24 07:36 09/09/24 11:06 09/09/24 07:36 09/09/24 11:06
I&O
09/08/24 09/09/24 09/10/24
06:59 06:59 06:59
Intake Total 1620 / 1620 840 / 840
Balance 1620 / 1620 840 / 840
--- NOTE | 2024-09-09 11:30 | PTCARENOTE ---
Pt with positive orthostatic blood pressures, pt asymptomatic. Dr Frye made aware. Care ongoing at this time.
--- NOTE | 2024-09-09 12:02 | W.PN.CD ---
Addendum entered and electronically signed by Kaden Condon MD 09/09/24 13:47:
I saw and examined the patient.
The PLATFORM MAN's note was reviewed and I agree with the note.
Comment: We will use less medications for now as she recovers from acute illness. We have arranged followup in our office and hope we can reintroduce/increase meds as she recovers.
Cardiology will sign off.
Original Note:
Today's Communication / Plan
-
-reduce Coreg for minimally symptomatic orthostasis
-as OP, increase GDMT back as tolerated as she recovers
-compression socks
-encourage appropriate hydration, but avoid overload
-would likely benefit from PT consult- defer to primary team- would make sure she can ambulate without difficulty while here in hospital
Impression / Plan
-
s/p Laparoscopic cholecystectomy with cholangiogram 09/07/24
-post op tx per gen surgery.
-abx per primary team and surgery
Low BP- improved, but still with orthostatic BP's- minimally symptomatic- mild light-headedness
-Coreg has been continued
-Cannot resume Entresto at this time as a result
-make sure she is properly hydrated
-wear compression socks for now
Patient history of nonischemic cardiomyopathy ejection fraction of 40%:
-stable without evidence for excess volume
-resume meds as BP tolerates as OP
Ugs-qnziopk-fimwylvjz diabetes- tx per primary team
Essential hypertension - monitor BP
Subjective:
She is feeling well overall
Physical Exam
Vital Signs/Labs
Vital Signs
Temp Pulse Resp BP Pulse Ox
98 F 67 18 114/57 96
09/09/24 11:06 09/09/24 07:36 09/09/24 11:06 09/09/24 07:36 09/09/24 11:06
09/08/24 09/09/24 09/10/24
06:59 06:59 06:59
Actual Weight 78.3 kg 75.16 kg
09/09/24 04:28
09/09/24 04:28
PT 13.5 Sec (11.4-14.6) 09/05/24 19:20
INR 1.05 09/05/24 19:20
Magnesium 2.1 mg/dl (1.6-2.3) 09/09/24 04:28
Physical Exam
Constitutional: No acute distress
EENT: Anicteric
Cardiovascular: Rhythm & rate is regular
Respiratory: Respiratory effort normal and Lungs clear to auscul.
Neuro/Psych: AO x 3
Data Reviewed
-
Date of Service: September 09, 2024
EKG: Other (SR telemetry)
Labs: Labs Reviewed by me
--- NOTE | 2024-09-09 12:26 | PTCARENOTE ---
Knee high tubigrips applied to B/L LEs per order.
[2024-09-09 12:28] LABS: Glucose - Point of Care 139 mg/dl (70-99)
--- NOTE | 2024-09-09 13:49 | W.PN.ID1 ---
Addendum entered and electronically signed by Jessica Ott MD 09/09/24 16:56:
I saw and evaluated the patient. I reviewed the resident�s note and agree with findings and plan as documented in the resident�s note.
SOAP
S:
afebrile
orthostatic blood pressures overnight
O:
VSS
Physical Exam
Constitutional: Comfortable
Cardiovascular: Regular Rate and S1/S2
Pulmonary: Clear to ascultation; Negative Wheezes, Rales or Rhonchi
Gastrointestinal: Soft, Non Tender, Non Distended, Normal Bowel Sounds and surgical sites x5 - clean, no erythema or dehiscence
Skin: Warm, mild Jaundice
Labs reviewed most notable:
WBC 15 from 19.
hgb 9.6
no L shift today
cr 0.8t bili 1.4
ast 40
alt 166
alk pohos 464
09/07 blood cultures x2 no growth to date
A&P:
transition to oral augmentin to finish a 10 day total course 09/05-09/14
follow up with pcp
Original Note:
Date of Service
Date of Service: September 09, 2024
Today's Communication
Stop Unasyn
Start Augmentin through 09/17/24
Assessment / Plan
Assessment-
Subjective-
Objective-vital signs-afebrile, vital signs stable. eukocytosis with left shift-WBC- 19.7 (09/08) improved to 15.5 . Microcytic anemia,-Hb-11.7, downtrending,-9.4 (09/08) MCV-78.2 remained stable., reactive thrombocytosis-platelet count 367 improving,
354-09/08 tikbdbzmvrrm-krkanvlcd-3.5 resolved as of today, elevated total bilirubin-6.6-1.9, direct bilirubin at 5.7, elevated transaminases (AST 241, ALT 579, ALP-908), single episode of hyponatremia-serum sodium-132, resolved. CRP-159.50, ESR-65.
Lactic acid levels-1.0. S/p cholecystectomy.
Postop day 1. Single blood culture drawn on 09/05/2024-Streptococcus species. Repeat blood cultures drawn on 09/07/2024-pending.
Currently on Zosyn day 4.
Plan-
Blood cultures x 2 drawn on 09/07/2024-at the same time-pending.
Total bilirubin improving.
stop zosyn.
Stop Unasyn.
switch her to Augmentin through 09/17/24.
Chief Complaint
-: Other
Subjective / Review of Systems
Review of Systems: No Fever, No Chills, No Headache, No Cough, No Sputum Production, No Chest Pain, No Palpitations, No Abdominal Pain, No Nausea, No Vomiting, No Diarrhea and No Dysuria
Vital Signs / Physical Exam
Vital Signs
Vital Signs
Temp Pulse Resp BP Pulse Ox
98 F 67 18 114/57 96
09/09/24 11:06 09/09/24 07:36 09/09/24 11:06 09/09/24 07:36 09/09/24 11:06
Physical Exam
Constitutional: Comfortable
Cardiovascular: Regular Rate and S1/S2; Negative Murmur, Rub or Gallop
Pulmonary: Clear; Negative Wheezes, Rales or Rhonchi
Gastrointestinal: Soft, Non Tender, Non Distended, Normal Bowel Sounds and Other (incision sites - clean, no discharge or erythema)
Extremities: Edema (1 + pitting edema)
Skin: Warm
Psychological: Calm
Objective Data
Lab Data
Lab Results
09/09/24 04:28
09/09/24 04:28
ESR 65 mm/hour (0-20) H 09/05/24 19:20
PT 13.5 Sec (11.4-14.6) 09/05/24 19:20
INR 1.05 09/05/24 19:20
Estimated Creat Clear 69 ml/min 09/09/24 04:28
Lactic Acid Cancelled 09/05/24 22:00
Total Bilirubin 1.4 mg/dl (0.2-1.3) H 09/09/24 04:28
AST 40 U/L (14-36) H 09/09/24 04:28
ALT 166 U/L (0-35) H 09/09/24 04:28
Alkaline Phosphatase 464 U/L (38-126) H 09/09/24 04:28
C-Reactive Protein 159.50 mg/L (0.0-10.00) H 09/05/24 19:20
Most recent labs reviewed.
CT Scan: Image Reviewed and Report Reviewed
Microbiology: Report Reviewed
Micro Results:
09/05/24 19:51 Blood Culture - Preliminary
Blood/Venous Streptococcus anginosus
Additional testing on request
Gram Stain - Preliminary
09/07/24 21:46 Blood Culture - Preliminary
Blood/Venous No Growth in 24 hours- Final report to follow
09/07/24 21:46 Blood Culture - Preliminary
Blood/Venous No Growth in 24 hours- Final report to follow
ERCP and intraoperative notes reviewed.
--- NOTE | 2024-09-09 15:30 | CM ---
Met with pt to discuss discharge planning
Pt reports feeling much better today
Has ride home with
Discussed IMM
Plan: anticipate home no needs
[2024-09-09 15:38] VITALS: BP 136/83
[2024-09-09 17:00] LABS: Glucose - Point of Care 89 mg/dl (70-99)
[2024-09-09] MEDS: LOVENOX 40 MG SC (17:03)
--- NOTE | 2024-09-09 17:20 | W.DCSUMMARY ---
Discharge Summary
Discharge Data
Date of Admission: 09/05/24
Date of Discharge: 09/09/24
Total time spent discharging patient (in min): 37
-
Pending Results: Yes (Final results of microbiology cultures from hospitalization)
Hospital Course
64 y/o female with past medical history significant for hypertension, nonischemic cardiomyopathy and heart failure with reduced ejection fraction, who presented to the emergency department complaining of 'turning yellow'. Patient also stated that
she has had intermittent right upper quadrant abdominal pain over several months prior to arrival. Patient was started on intravenous antibiotics for ascending cholangitis. Patient was given intravenous fluids and Lasix and Entresto were held.
Gastroenterology and general surgery were consulted. Patient had an ERCP on September 06, 2024, and it showed, as per cartoon designer's report:
' - Pus was seen in the major papilla, with fistula just
proximal to the os.
- Filling defects consistent with stones was seen on
the cholangiogram.
- The entire main bile duct was dilated.
- Choledocholithiasis was found. Complete removal was
accomplished by biliary sphincterotomy (which
connected the os and fitula) and balloon extraction.
- A biliary sphincterotomy was performed.
- The biliary tree was swept and pus was found.'
Cardiology was also consulted given patient's significant cardiac history. Patient had post-op hypotension which improved with intravenous fluids. On September 07, 2024, patient had a laparoscopic cholecystectomy with cholangiogram. Patient's single
blood culture from hospital arrival grew strep species - infectious diseases was consulted , Zosyn was switched to Unasyn -- and it was noted that it could be a contaminant however more likely from cholangitis, repeat blood cultures showed no growth
to date and patient was stable for discharge on oral Augmentin to finish a 10 day total course 09/05-09/14. Patient had asymptomatic orthostatic hypotension, for which cardiology recommended reducing Coreg and holding Entresto on discharge, along
with compression socks.
Discharge Plan
-
Patient Disposition: Home (Routine Discharge)
Discharge Diagnosis/Procedures: Choledocholithiasis, chronic cholecystitis. ERCP, laparoscopic cholecystectomy
Ascending Cholangitis obstructing choledocholithiasis
Cholelithiasis with chronic cholecystitis status post laparoscopic cholecystectomy with cholangiogram on 09/07/24
status post ERCP 09/06
Positive blood cultures with streptococcus species
Orthostatic Hypotension
Microcytic Anemia
Benign Hypertension
Chronic Heart Failure with Reduced Ejection Fraction - history of nonischemic cardiomyopathy ejection fraction of 40%
Type 2 Diabetes Mellitus
Condition: Good
Diet: Low Fat, Low Cholesterol, Diabetic, Carb Controlled and No added salt
Activity: No strenuous activity
Driving Restrictions: As prior to admission
Bathing Restrictions: OK to Shower
Blood Work: Recheck CBC, CMP and Magnesium with your outpatient PCP in 1 to 2 days.
Specialty Instructions: Weigh Daily- Call MD for wt gain/loss 3 lbs overnight/5 lbs in 1 week
Activity Restrictions/Additional Instructions:
Discuss with your outpatient physician if and when you should start metformin given your cardiac function and recent post-operative state. Review your blood sugar readings and your medication list with your primary care provider in 1 to 2 days. Your
glucose needs to be well-controlled for optimal healing -- and contact your primary care physician in the next 1 to 2 days for help with this.
Wear compression socks as instructed to help with orthostatic hypotension.
Instructions following Laparoscopic Cholecystectomy
Please call [phone] if you have any questions or concerns after your surgery.
Wound Care:
Your incisions are covered with skin glue which will come off on its own in 5-10 days.
It is ok to shower the day after your surgery. Do not scrub the incisions, let soap and water wash over them and pat dry.
� Bruising around your incisions is normal.
� Using ice packs will help minimize this swelling.
� No swimming or soaking incisions for 1 week.
� Your stitches will dissolve and do not need to be removed.
Urinary retention:
If you are unable to urinate 6-8 hours after your surgery, please call [phone] to discuss further management.
Activity:
No heavy lifting more than 15 pounds for the next 3 weeks, then you may gradually lift heavier objects as tolerated by discomfort. Otherwise activity as tolerated by your comfort level.
Pain Management:
Use Tylenol, ibuprofen and ice packs to treat your pain.
� You may take 650 milligrams of Tylenol (Max 3 grams per day) every 6 hours, and 600 mg of ibuprofen also every 6 hours. (you can alternate them every 3 hours)
� You may use an ice pack to your incision as needed.
� If you still have pain not controlled by these measures, take your prescription pain medication as prescribed.
Medications:
You may resume your home medications.
Bowel Medications:
Prescription pain medication can make you constipated. If you take this medication, also take colace 100 mg twice daily (this is over the counter). If this is not sufficient, you may take Miralax (polyethylene glycol) to help move your bowels.
Diet:
After your procedure, there are no dietary restrictions. However, you may notice some loose stools with fatty meals for up to 4 weeks after surgery. If this is the case, please adjust to a low fat diet as needed.
Driving restrictions:
No driving if you are taking prescription pain medication or if you think your normal reaction time and attentiveness has been slowed by your surgery.
Things to Look out for:
Worsening Abdominal pain, fever, jaundice, redness or drainage from incision
Call Doctor for:
Please call if you notice worsening redness or drainage from incision(s) lasting longer than 5 days after your surgery, any foul-smelling drainage from the incision, pain not controlled by pain medications, persistent nausea and vomiting, or for any
fevers greater than 101.3 F. The number for questions/concerns is [phone]
Follow-up:
A follow-up appointment will be scheduled with your surgeon in 3-4 weeks. Please call prior to your appointment if you have any questions or concerns. [phone]
Referrals:
Roma Garibay MD [Family Provider] -
Adela Hawkins CRNP [Specified Professional Personl] - 09/21/24 7:40 am
Madi Eddy MD [Active] -
Saturnino Garcias MD [Active] - in one to two weeks (Hospital anemia follow-up)
Lynsey Gonzalez DO [Active] - (calll for 3-4 week follow up)
Additional Discharge Medication Instructions: Amoxicillin-Clavulanate, Pantoprazole and Diabetes Supplies to check glucose are new medications/supplies.
Your Carvedilol dose has been decreased.
Dapagliflozin and Entresto are on hold until outpatient follow-up.
Prescriptions:
New
(DME) Contour Next Test Strips Strip
Qty: 100 0RF
Rx Instructions:
test glucose BID in pattern provided As Directed
E11.9
(DME) lancets [Color Lancets] 21 gauge Misc
Qty: 100 0RF
Rx Instructions:
test glucose BID in pattern provided As Directed
E11.9
amoxicillin-pot clavulanate 875-125 mg Tablet
1 tab PO Q12 Qty: 11 0RF
carvedilol 3.125 mg Tablet
3.125 mg PO BID Qty: 60 1RF
pantoprazole 40 mg Tablet,Delayed Release (Dr/Ec)
40 mg PO DAILY Qty: 30 1RF
Continued
quetiapine 200 mg tablet
200 mg PO HS
gabapentin 100 mg capsule
100 mg PO HS
duloxetine 60 mg capsule,delayed release(DR/EC)
60 mg PO DAILY
atorvastatin 20 mg Tablet
20 mg PO QPM Qty: 30 0RF
aspirin 81 mg Tablet,Chewable
81 mg PO DAILY Qty: 30 0RF
Held
dapagliflozin propanediol 10 mg Tablet
10 mg PO DAILY Qty: 30 0RF
Hold Instructions: Resume on 09/23/24. Discuss with your outpatient physician when to resume this medication.
Entresto 24-26 mg Tablet
1 tab PO BID
Hold Instructions: Resume on 11/04/24. Discuss with your molder punch regarding if and if so, when, you should resume this medication.
Discontinued
acetaminophen 500 mg Tablet
1,000 mg PO Q6H PRN (Reason: mild pain/fever/headache)
carvedilol 6.25 mg Tablet
6.25 mg PO BID Qty: 60 0RF
Discharge Orders:
Discharge Patient (As Directed); Ordered 09/09/24
Ordered By: Fabrice Frye
Discharge Date and Time
Discharge Date/Time: 09/09/24 18:00
Print Language: ROMANSH
[2024-09-09] MEDS: FLUAD (65 yr+) 2024-2025 FORMULA 0.5 ML IM (17:42)
== END 2024-09-09 18:00 | disposition home or self-care (01) | DRG 853 ==
LOC: 2 SOUTH 20:36
PROVIDERS: Emergency Medicine; Internal Medicine Gastroenterology; Surgery; ADMITTING PHYSICIAN Hospitalist; ATTENDING PHYSICIAN Hospitalist; CONSULT PHYSICIAN Internal Medicine; CONSULT PHYSICIAN Internal Medicine Cardiovascular Disease; CONSULT PHYSICIAN Surgery; EMERGENCY PHYSICIAN Student in an Organized Health Care Education/Training Program; FAMILY PHYSICIAN Emergency Medicine; OTHER PHYSICIAN Student in an Organized Health Care Education/Training Program
PROC: 0FC98ZZ Extirpation of Matter from Common Bile Duct, Via Natural or Artificial Opening Endoscopic (ICD-10-PCS; 2024-09-06)
PROC: 0F798ZZ Dilation of Common Bile Duct, Via Natural or Artificial Opening Endoscopic (ICD-10-PCS; 2024-09-06)
PROC: 0FT44ZZ Resection of Gallbladder, Percutaneous Endoscopic Approach (ICD-10-PCS; 2024-09-07)
PROC: BF532Z0 Other Imaging of Gallbladder and Bile Ducts using Fluorescing Agent, Intraoperative (ICD-10-PCS; 2024-09-07)
DX: A41.9 Sepsis, unspecified organism (principal); K80.67 Calculus of gallbladder and bile duct with acute and chronic cholecystitis with obstruction; I50.22 Chronic systolic (congestive) heart failure; I42.8 Other cardiomyopathies; S32.059A Unspecified fracture of fifth lumbar vertebra, initial encounter for closed fracture; K83.3 Fistula of bile duct; I11.0 Hypertensive heart disease with heart failure; D50.9 Iron deficiency anemia, unspecified; E03.9 Hypothyroidism, unspecified; E11.9 Type 2 diabetes mellitus without complications; F32.A Depression, unspecified; K83.8 Other specified diseases of biliary tract; E87.5 Hyperkalemia; D75.838 Other thrombocytosis; E78.00 Pure hypercholesterolemia, unspecified; F41.9 Anxiety disorder, unspecified; F90.9 Attention-deficit hyperactivity disorder, unspecified type; G43.909 Migraine, unspecified, not intractable, without status migrainosus; K21.9 Gastro-esophageal reflux disease without esophagitis; K58.9 Irritable bowel syndrome, unspecified; K44.9 Diaphragmatic hernia without obstruction or gangrene; M19.90 Unspecified osteoarthritis, unspecified site; Z79.82 Long term (current) use of aspirin; Z79.899 Other long term (current) drug therapy; Z87.891 Personal history of nicotine dependence; Z90.710 Acquired absence of both cervix and uterus; Z82.49 Family history of ischemic heart disease and other diseases of the circulatory system
CPT/HCPCS: 88304; 74177; 74300; 74329; 76000; 76705; 80053; 80069; 80076; 80143; 82248; 82728; 82962; 83036; 83605; 83735; 85025; 85027; 85610; 85652; 86140; 87040; 87077; 87205; 90662; 93005; 96365; 99291; C1769; G0008; Q9967